=== PATIENT | male | born 1960 | race African-American/Black ===

== ENCOUNTER 2017-12-08 19:17 | Emergency (ER) | payer OTHER ==
[~2017-12-08] VITALS: Ht 170.2 cm; Wt 146.5 kg
--- NOTE | ~2017-12-08 | EKG ---
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 : 1960 Requested By: Herbert Matthews Order Number: [id number] MD: Mario Lenz Measurements Intervals [place] Rate: 99 P: 69 [place]: 145 QRS: 47 QRSD: 94 T: QT: 348 QTc: 447 Interpretive Statements Sinus rhythm LAE, consider biatrial enlargement RSR' in V1 or V2, right VCD or RVH Nonspecific ST and T wave abnormality Compared to ECG 10/29/2009 18:21:26 Nonspecific change in the ST and T wave abnormality Electronically Signed On 12-09-2017 9:30:51 CDT by Mario Lenz [email or web address] <ELECTRONICALLY SIGNED> By: Mario Lenz MD, FAC 12/09/17 0930 23 23 Mario Lenz MD, [facility] /EPI
[~2017-12-08 19:17] MED LIST: AMOXICILLIN/POTASSIU PO; AZITHROMYCIN 2250 MG PO; CHERACOL COUGH120 ML PO; KEFLEX500 MG PO; MUCINEX600 MG PO; NOHOMEMEDICATIONS; PERCOCET 5-3251 EACH PO; PROAIR HFA8.5 GM IH; TRAMADOL 50 MG50 MG PO; ZPAK PO
[2017-12-08 20:39] LABS: ABSOLUTE NEUTROPHILS 6.9 thou/uL (1.4-8.2); BASOPHILS 0.3 % (0.0-2.0); EOSINOPHILS 2.2 % (0.0-3.0); HEMATOCRIT 41.6 % (42.0-52.0); HEMOGLOBIN 14.2 gm/dL (14.0-18.0); LYMPHOCYTES 28.6 % (24.0-44.0); MCH 31.4 pg (26.0-34.0); MCHC 34.1 g/dL (28.0-37.0); MCV 91.9 fL (80.0-100.0); MONOCYTES 5.3 % (1.0-8.0); PLATELET COUNT 203 thou/uL (150-400); POLYS 63.6 % (36.0-66.0); RBC 4.53 mil/uL (4.50-6.00); RDW 13.5 % (10.5-14.5); WBC 10.8 thou/uL (4.0-11.0)
[2017-12-08 21:12] LABS: ANION GAP 8 mmol/L (7-16); BUN 18 mg/dL (7-18); CALCIUM 8.7 mg/dL (8.5-10.1); CHLORIDE 101 mmol/L (98-107); CO2 30 mmol/L (21-32); CREATININE 1.1 mg/dL (0.7-1.3); GLUCOSE 167 mg/dL (74-106); POTASSIUM 3.7 mmol/L (3.5-5.1); SODIUM 139 mmol/L (136-145)
[2017-12-08 21:20] LABS: ALBUMIN 3.3 g/dL (3.4-5.0); SGOT 24 U/L (15-37); SGPT 27 U/L (30-65); TOTAL BILIRUBIN 0.2 mg/dL (<0.1-1.0); TOTAL PROTEIN 7.2 g/dL (6.4-8.2); TROPONIN-I <0.06 ng/mL (<0.06)
[2017-12-08] MEDS ORDERED: LABETALOL HCL100 MG PO (21:45)
[2017-12-08] MEDS ORDERED: BUTALB-APAP-CA1 EACH PO (21:45)
[2017-12-08 22:08] VITALS: BP 150/66
== END 2017-12-08 22:09 | disposition home or self-care (01) ==
LOC: ER 19:17
PROVIDERS: Emergency Medicine
DX: I10 Essential (primary) hypertension (principal); F20.9 Schizophrenia, unspecified; G47.30 Sleep apnea, unspecified; Z91.14 Patient's other noncompliance with medication regimen; E10.9 Type 1 diabetes mellitus without complications; E78.5 Hyperlipidemia, unspecified

== ENCOUNTER 2018-07-17 01:07 | Emergency (ER) | payer OTHER ==
[~2018-07-17] VITALS: Ht 177.8 cm; Wt 149.7 kg
[2018-07-17 01:23] VITALS: BP 181/99
== END 2018-07-17 02:06 | disposition home or self-care (01) ==
LOC: ER 01:07
DX: M25.522 Pain in left elbow (principal); I10 Essential (primary) hypertension; E10.9 Type 1 diabetes mellitus without complications; E78.5 Hyperlipidemia, unspecified; Z88.8 Allergy status to other drugs, medicaments and biological substances

== ENCOUNTER 2018-12-31 09:56 | Emergency (ER) | payer OTHER ==
[~2018-12-31] VITALS: Ht 177.8 cm; Wt 148.3 kg
[~2018-12-31 09:56] MED LIST changes: +BUTALB-APAP-CA1 EACH PO; +CARVEDILOL3.125 MG PO; +HALDOL 0.5 MG0.5 MG PO; +HYTRIN 1 MG CAP1 MG PO; +LABETALOL HCL100 MG PO; +LIPITOR10 MG PO; +LISINOPRIL10 MG PO; +NEURONTIN 300300 M1 PO; +TYLENOL EXTRA500 MG PO; +XARELTO10 MG PO
[2018-12-31] MEDS ORDERED: LASIX 20 MG TAB20 MG PO (10:43)
[2018-12-31] MEDS ORDERED: MELATONIN3 M1 PO (10:43)
[2018-12-31 10:54] LABS: ABSOLUTE NEUTROPHILS 4.9 thou/uL (1.4-8.2); BASOPHILS 0.9 % (0.0-2.0); EOSINOPHILS 3.7 % (0.0-3.0); HEMATOCRIT 41.7 % (42.0-52.0); HEMOGLOBIN 13.7 gm/dL (14.0-18.0); LYMPHOCYTES 21.6 % (24.0-44.0); MCH 30.8 pg (26.0-34.0); MCHC 32.8 g/dL (28.0-37.0); MCV 93.8 fL (80.0-100.0); MONOCYTES 7.5 % (1.0-8.0); PLATELET COUNT 186 thou/uL (150-400); POLYS 66.3 % (36.0-66.0); RBC 4.45 mil/uL (4.50-6.00); RDW 13.9 % (10.5-14.5); WBC 7.3 thou/uL (4.0-11.0)
[2018-12-31 11:12] LABS: ANION GAP 7 mmol/L (7-16); BUN 15 mg/dL (7-18); CALCIUM 8.9 mg/dL (8.5-10.1); CHLORIDE 101 mmol/L (98-107); CO2 32 mmol/L (21-32); CREATININE 0.8 mg/dL (0.7-1.3); GLUCOSE 126 mg/dL (74-106); POTASSIUM 4.3 mmol/L (3.5-5.1); SODIUM 140 mmol/L (136-145)
[2018-12-31 11:17] LABS: ALBUMIN 3.5 g/dL (3.4-5.0); SGOT 33 U/L (15-37); SGPT 27 U/L (30-65); TOTAL BILIRUBIN 0.5 mg/dL (<0.1-1.0); TOTAL PROTEIN 6.9 g/dL (6.4-8.2); TROPONIN-I <0.06 ng/mL (<0.06)
[2018-12-31] MEDS ORDERED: VENTOLIN HFA 1818 GM INH (13:12)
[2018-12-31] MEDS ORDERED: ZITHROMAX250 MG PO (13:12)
[2018-12-31] MEDS ORDERED: PROMETH-CODEIN 65 ML PO (13:12)
[2018-12-31 13:38] VITALS: BP 140/89
== END 2018-12-31 13:39 | disposition home or self-care (01) ==
LOC: ER 09:56
PROVIDERS: Emergency Medicine
DX: J18.9 Pneumonia, unspecified organism (principal); I10 Essential (primary) hypertension; E10.9 Type 1 diabetes mellitus without complications; E78.5 Hyperlipidemia, unspecified; Z86.73 Personal history of transient ischemic attack (TIA), and cerebral infarction without residual deficits; Z88.8 Allergy status to other drugs, medicaments and biological substances

== ENCOUNTER 2019-02-15 13:40 | Emergency (ER) | payer OTHER ==
[~2019-02-15] VITALS: Ht 172.7 cm; Wt 136.1 kg
[~2019-02-15 13:40] MED LIST changes: +LASIX 20 MG TAB20 MG PO; +MELATONIN3 M1 PO; +PROMETH-CODEIN 65 ML PO; +VENTOLIN HFA 1818 GM INH; +ZITHROMAX250 MG PO
[2019-02-15 16:02] LABS: ABSOLUTE NEUTROPHILS 5.5 thou/uL (1.4-8.2); BASOPHILS 0.4 % (0.0-2.0); EOSINOPHILS 2.5 % (0.0-3.0); HEMATOCRIT 43.5 % (42.0-52.0); HEMOGLOBIN 14.1 gm/dL (14.0-18.0); LYMPHOCYTES 27.5 % (24.0-44.0); MCH 30.8 pg (26.0-34.0); MCHC 32.5 g/dL (28.0-37.0); MCV 94.7 fL (80.0-100.0); MONOCYTES 7.2 % (1.0-8.0); PLATELET COUNT 205 thou/uL (150-400); POLYS 62.4 % (36.0-66.0); RDW 14.1 % (10.5-14.5); WBC 8.8 thou/uL (4.0-11.0)
[2019-02-15] MEDS ORDERED: DOXYCYCLINE 10100 MG PO (16:02)
[2019-02-15 16:10] LABS: CALCIUM 9.5 mg/dL (8.5-10.1); CREATININE 1.1 mg/dL (0.7-1.3); POTASSIUM 3.9 mmol/L (3.5-5.1)
[2019-02-15 16:16] LABS: ALBUMIN 3.7 g/dL (3.4-5.0); TOTAL BILIRUBIN 0.5 mg/dL (<0.1-1.0); TOTAL PROTEIN 7.7 g/dL (6.4-8.2)
[2019-02-15 17:25] VITALS: BP 174/85
== END 2019-02-15 17:26 | disposition home or self-care (01) ==
LOC: ER 13:40
PROVIDERS: Physician Assistant
DX: R06.02 Shortness of breath (principal); M79.89 Other specified soft tissue disorders; R05 Cough; I11.0 Hypertensive heart disease with heart failure; I50.9 Heart failure, unspecified; E10.9 Type 1 diabetes mellitus without complications; E78.5 Hyperlipidemia, unspecified; Z79.899 Other long term (current) drug therapy

== ENCOUNTER 2019-08-13 21:21 | Inpatient (IN) | payer OTHER ==
[~2019-08-13] VITALS: Ht 177.8 cm; Wt 128.8 kg
[~2019-08-13 21:21] MED LIST changes: +CARVEDILOL25 MG PO; -CARVEDILOL3.125 MG PO; +DOXYCYCLINE 10100 MG PO; -HYTRIN 1 MG CAP1 MG PO; +HYTRIN 2MG CAPSU2 M1 PO; -LASIX 20 MG TAB20 MG PO; +LASIX 40 MG TAB40 M2 PO; -LISINOPRIL10 MG PO; +LISINOPRIL20 MG PO; -NEURONTIN 300300 M1 PO; +NEURONTIN 300M300 M2 PO; -XARELTO10 MG PO; +XARELTO20 MG PO
[2019-08-13 21:32] VITALS: BP 210/112
[2019-08-13] MEDS ORDERED: ABILIFY 5 MG TAB5 MG PO (21:41)
[2019-08-13 22:00] LABS: ABSOLUTE NEUTROPHILS 6.7 thou/uL (1.4-8.2); BASOPHILS 0.4 % (0.0-2.0); HEMATOCRIT 43.1 % (42.0-52.0); HEMOGLOBIN 14.2 gm/dL (14.0-18.0); LYMPHOCYTES 21.3 % (24.0-44.0); MCH 31.5 pg (26.0-34.0); MCHC 32.9 g/dL (28.0-37.0); MCV 95.8 fL (80.0-100.0); MONOCYTES 6.9 % (1.0-8.0); PLATELET COUNT 200 thou/uL (150-400); POLYS 69.4 % (36.0-66.0); RDW 15.1 % (10.5-14.5); WBC 9.6 thou/uL (4.0-11.0)
[2019-08-13 22:01] LABS: ANION GAP 4 mmol/L (7-16); BUN 16 mg/dL (7-18); CALCIUM 8.2 mg/dL (8.5-10.1); CHLORIDE 100 mmol/L (98-107); CO2 34 mmol/L (21-32); CREATININE 1.1 mg/dL (0.7-1.3); GLUCOSE 146 mg/dL (74-106); POTASSIUM 3.6 mmol/L (3.5-5.1); SODIUM 138 mmol/L (136-145)
[2019-08-13 22:04] LABS: APTT 27.9 Seconds (24.5-32.8); INR 1.1; PROTIME 11.3 Seconds (9.3-11.4)
[2019-08-13 22:06] LABS: BE(vivo) 1.6 mmol/L (-2 to +3); HCO3 28.6 mmol/L (22.0-26.0); PCO2 54.3 mmHg (35.0-45.0); PO2 53.7 mmHg (80.0-100.0); pH 7.339 (7.360-7.450); sO2 85.4 % (92.0-98.0)
[2019-08-13 22:12] LABS: ALBUMIN 3.5 g/dL (3.4-5.0); MAGNESIUM 1.8 mg/dL (1.8-2.4); SGOT 35 U/L (15-37); SGPT 30 U/L (30-65); TOTAL BILIRUBIN 0.7 mg/dL (0.2-1.0); TROPONIN-I <0.06 ng/mL (<0.06)
[2019-08-13 22:50] LABS: URINE BILIRUBIN NEGATIVE (Negative); URINE BLOOD NEGATIVE (Negative); URINE CLARITY CLEAR; URINE COLOR YELLOW; URINE GLUCOSE-RANDOM* NEGATIVE (Negative); URINE KETONES NEGATIVE (Negative); URINE LEUKOCYTES-REFLEX NEGATIVE (Negative); URINE NITRITE-REFLEX NEGATIVE (Negative); URINE PROTEIN (DIPSTICK) TRACE (Negative); URINE SPECIFIC GRAVITY 1.015 (1.005-1.035)
[2019-08-13 23:33] VITALS: BP 181/87
[2019-08-14] VITALS (8 sets, daily range): BP systolic 120–160; BP diastolic 75–103
--- NOTE | 2019-08-14 06:01 | NUR ---
ASSESSMENT: PT ARRIVED ON THE UNIT VIA CART FROM ED ACCOMPANIED BY STAFF MEMBER. PT IS ALERT AND ORIENT TIMES FOUR. PT REQUEST TO SLEEP IN THE CHAIR R/T SOB. BP ELEVATED, METOPROLOL GIVEN, HYDRALAZINE PRN. PT WAS VERY DROWSY UPON ADMISSION. DID HAVE TO BE AWAKEN SEVERAL TIMES TO ANSWER QUESTIONS AND COOPERATE WITH THE ADMISSION. PT GUNJAN THOMAS, THERE HAS BEEN SEVERAL TICKETS MADE REGUARDING THAT SOME ADMISSIONS WILL NOT FILE ONCE THEY HAVE BEEN ENTERED. THIS RN ENTERED THIS PT'S ADMISSION 5 TIMES TO NO AVAIL WHEN IT WAS TIME TO FILE. THIS PT IS NOT BEING ABUSED AT HOME OR ELSE WHERE, HE DOES FEEL SAFE RETURNING HOME. HE IS NOT A RISK FOR SI/HI NOR ABUSE. HE IS A LOW FALL RISK R/T BANDAGES WRAPPED AROUND LE. PT IS ON A FR OF 1500. HE IS R/O COVID. SR-ST PER MONITOR. IT TECH WILL TRY TO CORRECT THE ISSUE OF NOT BEING ABLE TO ENTER/FILE AN ADMISSION ASSESSMENT. WILL CONTINUE TO MONITOR.
[2019-08-14 06:16] LABS: ANION GAP 3 mmol/L (7-16); BUN 18 mg/dL (7-18); CALCIUM 8.3 mg/dL (8.5-10.1); CHLORIDE 100 mmol/L (98-107); CO2 36 mmol/L (21-32); CREATININE 1.1 mg/dL (0.7-1.3); GLUCOSE 169 mg/dL (74-106); POTASSIUM 3.6 mmol/L (3.5-5.1); SODIUM 139 mmol/L (136-145)
[2019-08-14 06:39] LABS: CHOLESTEROL 116 mg/dL (<200); HDL CHOLESTEROL 20 mg/dL (>40); LDL CHOLESTEROL 72 mg/dL (<100); SERUM ASSESSMENT Clear; TC:HDL 5.8 Ratio (Not establshd); TRIGLYCERIDE 124 mg/dL (<150); VLDL 25 mg/dL (<40)
--- NOTE | 2019-08-14 07:19 | NUR ---
Nutrition: BMI > 40 at 49.7 kg/m2. Admit for CHF, COPD, respiratory failure, HTN. Currently in enhanced isolation, undergoing COVID rule out. Test results still pending. He is on a 1500 carb controlled, 2 g Na diet, as well as 1500 mL fluid restriction as indicated in RN notes. Will defer diet education at this time and attempt next week once results are known.
--- NOTE | 2019-08-14 18:42 | NUR ---
PT IS A&OX3, PT IS CONTINUING O2 3L/MIN/NC, PT HAS RUNNING A-FIB, HR UP TO 129-140, PT STARTS DILTIAZEM DRIP , PT 'S DILTIAZEM IS RUUUNING AT 5MG/HR TO KEEP HR <100 ( 70-90), PT HTN HAS IMPROVED, PT'S BLE WOUND CARE HAS DONE , PT DENIES PAIN AT THIS TIME, PT GETS UP TO CHAIR ,
--- NOTE | 2019-08-14 18:49 | NUR ---
PT'S FIRST TEST IS NEGATIVE FROM 08/13/19 2220 COVID TEST, BUT PT STILL HAS SOB WITH ACTIVITIES, PT HAS SECOND COVID TEST AT 1450PM TODAY, PT REMAININ ENHANCED PRECAUTIONS
[2019-08-15 01:06] LABS: GLYCOHEMOGLOBIN (HGB A1C) 6.5 % (4.8-5.6)
[2019-08-15 03:20] VITALS: BP 118/78
--- NOTE | 2019-08-15 05:02 | NUR ---
Pt. requested assistance to use the bathroom after shift change. While in the bathroom he is tearful and asking why can't his stay with him. Explained to pt. that while his test is pending and while he is in this unit ,visitors are not allowed per policy due to COVID precautions. He got even frustrated when he attempted to wipe himself and stated he can't despite disconnecting his sat monitor and IV. He was assisted to clean himself up. Assisted back in recliner chair per his request and encouraged to call when he's ready to go to bed. Once in chair , he verbalized several concerns. He didn't feel like the dressing in his legs is not the correct dressing. Explained to him that leg dressing that was done during the day is the wound care doctor's recommendation. He also asked why can't we fill water pitcher with water. Explained to him that he is on fluid restriction and we can better monitor his fluid intake by bringing cups. He was not happy about that. Brought him a cup of water to take with his med and later on he requested sandwich because he is hungry which was given to him. He also asked why we have not started his regular meds and explained to him that day RN tried to get hold of his to get an accurate list of his meds but no answer. I asked the pt. if there's anything in particular that he needs and stated he does not remember but his should remember all of it. Since it's late at night I offered to call if she's still awake but pt. said to just do it sometime today. After I left the room he turned on his call light asking for the tree trimming supervisor or school transportation director. Informed both but can't come right away. Another school transportation director in the unit went to speak to the pt. He c/o of itching and burning on his legs and requesting for the medicated wrap for his legs but can't remember what medicated wrap it is. Pt. informed that we have to find out what kind of wrap it is and we have to speak to wound care doctor about that. Offered tyl and benadryl to help with discomfort and he agreed. MANAGER STARS notified and order received. Pt. verbalized some relief. Also offered to rewrapped legs but declined and also offered to take off dressing if he needs a break to help with discomfort but also declined stating he didn't want to leave it open. Pt. slept for a short period of time on the bed and requested to get up in the recliner chair again. After he was assisted up in the chair and got him comfortable he c/o of his IV hurting. Right AC IV is functional and working but he stated it's poking him. New IV placed on right FA. Cardizem gtt. infusing at 5ml/hr. He has been in and out of A fib with controlled rate and SR. Maintaining O2 sat in the low to mid 90's on 3L/NC. He verbalized being short of breath with exertion. Voided per urinal.
[2019-08-15 06:42] LABS: CALCIUM 8.6 mg/dL (8.5-10.1); CREATININE 1.2 mg/dL (0.7-1.3); POTASSIUM 3.7 mmol/L (3.5-5.1)
[2019-08-15 08:19] VITALS: BP 131/83
--- NOTE | 2019-08-15 10:17 | NUR ---
RN HAD ASKED PT AND PT'S TO GET PT'S PHARMACY PHONE FOR PT'S HOME MEDICATIONS, BUT PT AND PT'S DID NOT KNOW PT'S MEDICATION LIST AND LUCY JUAN PHONE NUMBER, RN HAD ASKED PT'S TO FIND OTHER FAMILY TO HELP ABOUT PT'S MEDICATION LIST .RN HAD REPORTED TO NEXT SHIFT TO F/U.-------LATE ENTRY FOR 08/14/19 7AM-7PM SHIFT.
--- NOTE | 2019-08-15 10:40 | NUR ---
PER DR. CHRISTIE PT IS OK TO BE TAKEN OFF OF COVID PRECAUTIONS AND BE MOVED TO ANOTHER FLOOR.
--- NOTE | 2019-08-15 11:22 | NUR ---
PT CARE ASSUMED AT 0700. A&Ox4, FORGETFUL. PT IS VERY SLEEPY AND WILL FALL ASLEEP IN TH EMIDDLE OF TALKING TO HIM. PT DOES NOT UNDERSTAND HIS DIAGNOSIS AND PLAN OF CARE FULLY AND WILL CONTINUE TO ASK THE SAME QUESTIONS OVER AND OVER AGAIN. CONTINUES PT EDUCATION GIVEN. RN TRIED TO CALL TO RECONCILE MEDICATION WITH NO ANSWER, MESSAGE LEFT ON VOICEMAIL. PT IS OK TO GO TO ANOTHER FLOOR PER DR. CHRISTIE WITH TWO NEGATIVE COVID RESULTS. IV IS PATENT WITH CARDIZEM DRIP. VITALS ARE STABLE AND SRIP CONTINUES TO GO AT 5ML/HR. NICOTINE PATCH ON L.ARM. BILATERAL EDEMA WITH +3. 1500ML FLUID RESTRICTION. ACHS WITH SLIDING SCALE. BILATER L. CELLULITIS. PT DOES NOT BELIEVE THE TREATMENT ON HIS LEGS ARE CORRECT WITHOUT HIS BEING ABLE TO RECONCILE HIS MEDICATIONS WE CANNOT CONFIRM WHAT THE MEDICATED CREAM IS HE IS MENTIONING. PT USES URINAL. 3L O2 BASELINE. CHF PROTOCOL. DAILY WEIGHT. AFIB ON THE MONITOR. FALL PROTOCOL IN PLACE. WILL CONTINUE TO MONITOR.
[2019-08-15 12:15] VITALS: BP 131/75
[2019-08-15] MEDS ORDERED: ASA81BEC PO (12:15)
--- NOTE | 2019-08-15 12:41 | HC ---
[facility] [place] [place] [address] CONSULTATION Name: GURWINDER FRANCISCO Room #: 356-P ADM IN M.R.#: [id number] Admission: 08/13/19 Attend Phys: Ping Rothman Discharge: Date of : 62 Report #: [id number] THIS REPORT FOR: cc: AZUCENA - No family physician/PCP AZCUENA - No family physician/PCP Seamus Shelton MD ~ CC: AZUCENA physician/PCP Ping Rothman DATE OF SERVICE: 08/14/2019 WOUND CARE CONSULTATION NOTE REASON FOR CONSULTATION: Swelling of legs. HISTORY OF PRESENT ILLNESS: The patient is a 59-year-old gentleman, admitted to [facility] through the Emergency Department on 08/13/2019 for shortness of breath and swelling in his legs. The patient has a history of atrial fibrillation and atrial fibrillation ablation. He has a history of hypertension, congestive heart failure, stroke, diabetes mellitus type 1. He felt his legs have been more swollen and sometimes weep. His legs were recently wrapped at Wound Care at [facility]. PAST MEDICAL HISTORY: Diabetes mellitus type 1, congestive heart failure, stroke, atrial fibrillation with ablation. PAST SURGICAL HISTORY: Ablation for atrial fibrillation and flutter. MEDICATIONS: Include Ventolin, Tylenol, Hytrin, Zestril, Lipitor, Coreg, Xarelto, Neurontin, Lasix, Abilify. PHYSICAL EXAMINATION: GENERAL: Shows a sleepy gentleman, sitting in a chair. The patient is obese. HEENT: Mucous membranes are moist. LUNGS: Respirations are unlabored. ABDOMEN: Obese. EXTREMITIES: Extremities exam shows his legs are wrapped with Cristopher wraps. Cristopher wraps and dressings are removed. Lower extremities show some lymphedema and venous stasis with slight edema. There are no open wounds. There is no weeping. IMPRESSION: 1. Obesity. 2. Atrial fibrillation. 3. Shortness of breath. 4. Status post cerebrovascular accident. [facility] [address] [place] [address] CONSULTATION Name: GURWINDER FRANCISCO JOHAN Room #: 356-P [facility] IN ..#: [id number] Admission: 08/13/19 Attend Phys: Ping Rothman Discharge: Date of : 62 Report #: [id number] 5. Bilateral mild lymphedema. 6. Bilateral venous stasis. 7. Diabetes mellitus type 1 with skin complications with inflammation of both legs. No apparent cellulitis of the legs. IMPRESSION: Congestive heart failure with lower extremity lymphedema and venous stasis. PLAN: Skin moisturizer to both legs. Kerlix wrap and double Cristopher wrap, which can stay on for 2-3 days. Wound Care team will follow. <ELECTRONICALLY SIGNED> By: Seamus Shelton MD 08/15/19 1241 1440 1516 Seamus Shelton MD /nt
[2019-08-15 17:18] VITALS: BP 175/105
[2019-08-15 19:45] VITALS: BP 142/58
[2019-08-15 19:51] VITALS: BP 142/58
[2019-08-16 04:00] VITALS: BP 149/67
[2019-08-16 05:40] LABS: CALCIUM 8.6 mg/dL (8.5-10.1); POTASSIUM 3.7 mmol/L (3.5-5.1)
--- NOTE | 2019-08-16 06:13 | NUR ---
PT IS ALERT AND ORIENTED X4. LUNGS ARE CLEAR TO DIMINISHED. DOESNT LIKE TO WEAR HIS SLEEP MACHINE AND MASK. HE REPORTS HASNT WORN IT IN MONTHS. SLEEPS IN UPRIGHT POSITION. O2 ON AT 4 LITERS PER MASK OXYGEN SATURATION IS 94 PERCENT. LEGS BILAERAL IN WRAPS FOR CELLULITS OF LEGS. SNORING AND SLEEP INTERUPTED DURING NIGHT TIME. APPEARS IF HE HAS TROUBLE SLEEPING. EXPECIALY NOT WEARING HIS MASK AT BEDTIME NEEDED FOR CARE. WILL CONTINUE TO ASSESS AND MONITOR PER NURSING
[2019-08-16 07:32] VITALS: BP 120/78
[2019-08-16 11:46] LABS: HEMATOCRIT 43.6 % (42.0-52.0); HEMOGLOBIN 13.9 gm/dL (14.0-18.0); MCH 31.1 pg (26.0-34.0); MCHC 31.9 g/dL (28.0-37.0); MCV 97.7 fL (80.0-100.0); RBC 4.47 mil/uL (4.50-6.00); RDW 15.2 % (10.5-14.5); WBC 8.9 thou/uL (4.0-11.0)
[2019-08-16 12:00] VITALS: BP 99/66
[2019-08-16 14:03] LABS: BE(vivo) 7.9 mmol/L (-2 to +3); HCO3 34.9 mmol/L (22.0-26.0); PCO2 58.5 mmHg (35.0-45.0); PO2 58.2 mmHg (80.0-100.0); pH 7.393 (7.360-7.450); sO2 89.4 % (92.0-98.0)
--- NOTE | 2019-08-16 15:45 | NUR ---
ASSUMED CARE AT SHIFT CHANGE, PATEINT IS ALERT AND ORIENTED X4. SETING IN CHAIR AND SLEEPING ON AND OFF. VSS, AND AFLUTTER ON THE MONITOR THIS MORNING, AND CONVERTED TO SR. C/O THAT DRESSING ON HIS BLE NOT BEING CHANGED, THIS RN OFFERED TO CHANGE THE DRESSING AND REWRAP BLE, AND PATIENT REFUSED. AND WILL CONTINUE WITH POC.
[2019-08-16 16:00] VITALS: BP 119/63
[2019-08-16 20:25] VITALS: BP 138/68
[2019-08-17 05:09] VITALS: BP 105/61
--- NOTE | 2019-08-17 06:48 | NUR ---
PATIENT ALERT AND ORIENTED X4. UP TO CHAIR X2 DURING THE NIGHT. 02NC 4-5L WITH SOME SOA WITH EXERTION. BILATERAL LOWER LEGS WRAPPED AND ARE D/I. LARGE BM AT SHIFT CHANGE YESTERDAY. 1500 FLUID RESTRICTION DAILY. PATIENT UP TO BATHROOM WITH ONE ASSIST. BS MONITORED PER ORDER. WILL MONITOR.
[2019-08-17 07:00] VITALS: BP 110/68
--- NOTE | 2019-08-17 07:29 | EKG ---
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 : 1960 Requested By: Herbert Matthews Order Number: [id number] MD: Mario Lenz Measurements Intervals [place] Rate: 111 P: 60 RI: 151 QRS: 63 QRSD: 93 T: 72 QT: 318 QTc: 432 Interpretive Statements Sinus tachycardia Paired atrial premature complexes Nonspecific T abnormalities Compared to ECG 12/08/2017 19:24:14 Atrial premature complexes are now present Electronically Signed On 08-17-2019 7:28:59 CDT by Mario Lenz [email or web address] <ELECTRONICALLY SIGNED> By: Mario Lenz MD, [facility] 08/17/19 0728 Mario Lenz MD, [facility] /EPI
--- NOTE | 2019-08-17 07:41 | EKG ---
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 : 1960 Requested By: Yvan Bolden Order Number: [id number] MD: Mario Lenz Measurements Intervals [place] Rate: 78 P: [place]: QRS: 57 QRSD: 93 T: 60 QT: 395 QTc: 450 Interpretive Statements Atrial fibrillation RSR' in V1 or V2, right VCD Compared to ECG 08/13/2019 21:35:57 Atrial fibrillation has replaced sinus rhythm T-wave abnormality no longer present Electronically Signed On 08-17-2019 7:41:02 CDT by Mario Lenz [email or web address] <ELECTRONICALLY SIGNED> By: Mario Lenz MD, [facility] 08/17/19 0741 Mario Lenz MD, FAC /EPI
--- NOTE | 2019-08-17 08:01 | HC ---
[facility] [place] [address] CONSULTATION Name: GURWINDER FRANCISCO Room #: 211-P ADM IN M.R.#: [id number] Admission: 08/13/19 Attend Phys: Ping Rothman Discharge: Date of : 62 Report #: [id number] THIS REPORT FOR: cc: AZUCENA - Yarelis family physician/PCP AZUCENA - Yarelis family physician/PCP Yvan Bolden MD [facility] ~ CC: [facility] physician/PCP Ping Rothman DATE OF SERVICE: 08/14/2019 CARDIOLOGY CONSULT HISTORY OF PRESENT ILLNESS: The patient is a 59-year-old male who was admitted through the Emergency Room with some progressive dyspnea and shortness of breath. History mostly obtained from records he is revealing, being sitting up at bed at night with progressive lower extremity edema. He has chronic O2 at baseline. Does have a history of an AFib ablation 2 years ago, morbid obesity and O2 dependency. Apparently, he has been compliant with his medications and he is on relatively low doses of all these medications, a long time smoker and still continues to be a pack and a half a day. Some chest pain with some typical-atypical features. I am asked to evaluate for some progressive heart failure and volume overload. The home medications have been CPAP, oxygen, albuterol, recently Zithromax, promethazine, terazosin 1 mg, lisinopril 10, carvedilol 3.125 b.i.d., Lipitor 10, Xarelto 10, gabapentin, Lasix 20, melatonin, and Abilify 5 mg. Previously, he had apparently been on some Haldol. PAST MEDICAL HISTORY: Positive for hypertension, AFib ablation, diabetes, history of recurrent CHF, I do not know his LV function, hallucinations, hyperlipidemia and a prior stroke. SOCIAL HISTORY: Not really able to obtain, significant for alcohol and tobacco. Not sure of the family situation. FAMILY HISTORY: Not obtainable. LABORATORY WORK: Creatinine is 1.1, potassium 3.6. Troponin less than 0.06. BNP 736. H and H is 14 and 43. White count 9.6. Chest x-ray shows pulmonary vascular congestion and bilateral perihilar infiltrates. Blood pressures have been labile, hypertensive predominantly, 170s to 180s. Pulse is also labile in a 100, looks like he is at times attempting to have recurrent AFib. [facility] [address] [place] [address] CONSULTATION Name: GURWINDER FRANCISCO JOHAN Room #: 211-P ADM IN M.R.#: [id number] Admission: 08/13/19 Attend Phys: Ping Rothman Discharge: Date of : 62 Report #: [id number] I repeated his EKG in the morning anyway. PHYSICAL EXAMINATION: VITAL SIGNS: Blood pressure 170/86, pulse is 100s. HEENT: Eyes reveal xanthelasmas. Pharynx is clear. NECK: Shows preserved upstrokes. There is evidence of JVD. LUNGS: ____ crackles, prolonged expiratory phase. CARDIAC EXAM: Tachycardic, S1 and S2 distant. ABDOMEN: Soft, obese and nontender. EXTREMITIES: Reveals significant edema, 1-2+ to the level of the knee. Currently, lower extremities were wrapped. NEUROLOGIC: Intact. ASSESSMENT: 1. Acute on chronic systolic/diastolic heart failure, awaiting echo. 2. Hypertensive urgency with significant lability. 3. Acute on chronic hypoxemia and hypercapnia, on chronic O2. 4. Diabetes. 5. Hypertension. 6. Hypercholesterolemia. 7. History of cerebrovascular accident. 8. Rule out COVID. RECOMMENDATIONS AND PLAN: I am going to increase the carvedilol 12.5 b.i.d. We will switch losartan to olmesartan 40. IV Lasix and I will add diltiazem drip for rate control here. We will get EKG and echo once COVID is ruled out, this is pending. Further cardiology recommendations to follow. We will try to obtain old records if there is any to obtain. It sounds like this is not a new occurrence with his heart failure. We will follow with you. Thank you for asking me to assist in the care of this patient. <ELECTRONICALLY SIGNED> By: Yvan Bolden MD, FACC 08/17/19 0801 1033 1128 Yvan Bolden MD, FACC /nt
[2019-08-17 08:53] LABS: BUN 25 mg/dL (7-18); CHLORIDE 99 mmol/L (98-107); SODIUM 137 mmol/L (136-145)
[2019-08-17 08:54] LABS: ANION GAP < 0 mmol/L (7-16); CALCIUM 8.5 mg/dL (8.5-10.1); CO2 40 mmol/L (21-32); CREATININE 1.3 mg/dL (0.7-1.3); GLUCOSE 130 mg/dL (74-106); POTASSIUM 4.5 mmol/L (3.5-5.1)
--- NOTE | 2019-08-17 11:05 | 2DMMODE ---
[facility] [address] [address] 2 D/M-MODE ECHOCARDIOGRAM Name: GURWINDER FRANCISCO Room #: 211-P ADM IN M.R.#: [id number] Admission: 08/13/19 Attend Phys: Yo Molina MD Discharge: Date of : 62 Report #: [id number] THIS REPORT FOR: cc: AZUCENA - No family physician/PCP FAM - No family physician/PCP Yvan Bolden MD [facility] ~ APPROVED REPORT Study performed: 08/17/2019 09:38:34 EXAM: Comprehensive 2D, Doppler, and color-flow Echocardiogram Patient Location: Bedside Room #: 211 Status: routine BSA: 2.29 HR: 80 bpm BP: 110/68 mmHg Rhythm: NSR Other Information Study Quality: Fair Technically limited study due to lung disease, limited apical window. Risk Factors: Cardiac Risk Factors: HTN, Hyperlipidemia Indications Congestive Heart Failure COPD PAF 2D Dimensions IVSd: 15.03 (7-11mm) LVOT Diam: 21.00 (18-24mm) LVDd: 48.82 mm PWd: 14.10 (7-11mm) Ascending Ao: 28.64 (22-36mm) LVDs: 35.89 (25-40mm) Aortic Root: 32.64 mm Volumes Left Atrial Volume (Systole) Single Plane 4CH: 44.49 mL Aortic Valve [facility] [address] [place] [address] 2 D/M-MODE ECHOCARDIOGRAM Name: GURWINDER FRANCISCO JOHAN Room #: 211-P ADM IN M.R.#: [id number] Admission: 08/13/19 Attend Phys: Yo Molina MD Discharge: Date of : 62 Report #: [id number] Peak Cosme.: 1.52 m/s AO Peak Gr.: 9.20 mmHg LVOT Max P.03 mmHg LVOT Max V: 0.87 m/s YUE Vmax: 2.06 cm2 Mitral Valve E/A Ratio: 1.4 MV Decel. Time: 184.77 ms MV E Max Cosme.: 0.78 m/s MV A Cosme.: 0.56 m/s MV PHT: 53.58 ms IVRT: 78.43 ms Pulmonary Valve PV Peak Cosme.: 0.87 m/s PV Peak Gr.: 3.02 mmHg Tricuspid Valve TR Peak Cosme.: 2.58 m/s RAP Estimate: 10.00 mmHg TR Peak Gr.: 26.60 mmHg PA Pressure: 37.00 mmHg Left Ventricle The left ventricle is normal size. There is normal LV segmental wall motion. Moderate concentric left ventricular hypertrophy. The left ventricular systolic function is normal. The left ventricular ejection fraction is within the normal range. LVEF is 55-60%. The left ventricular diastolic function is normal. Right Ventricle The right ventricle is normal size. The right ventricular systolic function is normal. Atria Left atrium is mildly dilated. Right atrium is dilated. Aortic Valve The aortic valve is normal in structure. No aortic regurgitation is present. There is no aortic valvular stenosis. Mitral Valve The mitral valve is normal in structure. There is no mitral valve regurgitation noted. No evidence of mitral valve stenosis. Tricuspid Valve The tricuspid valve is normal in structure. Moderate tricuspid regurgitation. Pulmonary artery pressure is 37 mmHg. [facility] [address] [place] [address] 2 D/M-MODE ECHOCARDIOGRAM Name: GURWINDER FRANCISCO JHOAN Room #: [address] [place] [address] IN M.R.#: [id number] Admission: 08/13/19 Attend Phys: Yo Molina MD Discharge: Date of : 62 Report #: [id number] Pulmonic Valve The pulmonary valve is normal in structure. There is no pulmonic valvular regurgitation. Great Vessels The aortic root is normal in size. The ascending aorta is normal in size. IVC is dilated and collapses >50% with inspiration. Pericardium There is no pericardial effusion. <Conclusion> The left ventricle is normal size. Moderate concentric left ventricular hypertrophy. LVEF is 55-60%. The left ventricular diastolic function is normal. The right ventricle is normal size. Left atrium is mildly dilated. Right atrium is dilated. The aortic valve is normal in structure. There is no mitral valve regurgitation noted. Moderate tricuspid regurgitation. Pulmonary artery pressure is 37 mmHg. The aortic root is normal in size. There is no pericardial effusion. <ELECTRONICALLY SIGNED> By: Yvan Bolden MD, FACC 08/17/19 1104 1104 1104 Yvan Bolden MD, FACC /INF
[2019-08-17 11:15] LABS: BE(vivo) 6.9 mmol/L (-2 to +3); HCO3 37.1 mmol/L (22.0-26.0); sO2 93.7 % (92.0-98.0)
[2019-08-17 11:16] LABS: pH 7.263 (7.360-7.450)
[2019-08-17 11:30] VITALS: BP 160/60
[2019-08-17 15:30] VITALS: BP 99/49
--- NOTE | 2019-08-17 19:46 | NUR ---
ASSUMED CARE PT SHIFT CHANGE. ASSESSMENTS CHARTED.MEDS GIVEN PER APR. PT ORIENTED. LETHARGIC UPON ASSESSMENT, DIFFICULT TO AROUSE. PHYSICIAN NOTIFIED. ORDERS RECEIVE. ABG LABS REPORTED TO PHYSICIAN. BIPAP PUT ON PT, DOES NOT TOLERATE WELL. PT TORE OFF BIPAP AND BEGAN CURSING AT RN SAYING HE WILL NOT WEAR THIS. PULMONARY NOTIFIED. REPEAT ABG ORDERED. NASAL CANNULA PUT ON AND PT LEFT TO CALM DOWN. PT AGREED TO WEAR BIPAP BREATHING CONTINUED TO BECOME INCREASINGLY LABORED. AT BEDSIDE THIS SHIFT. PT SEEN BY WOUND- SEE NEW ORDERS. WORKED WITH PHYS THERAPY AND OT, TOLERATED WELL. SR ON TELE. REPORT PASSED ONTO NOC RN.
[2019-08-17 19:59] VITALS: BP 107/67
[2019-08-17 20:36] LABS: BE(vivo) 6.3 mmol/L (-2 to +3); PO2 66.9 mmHg (80.0-100.0)
[2019-08-17 20:38] LABS: PCO2 78.2 mmHg (35.0-45.0)
[2019-08-17 20:44] LABS: pH 7.281 (7.360-7.450)
--- NOTE | 2019-08-17 22:00 | NUR ---
PT RESTING IN BED.UPSET WITH ONE OF THE STAFF AND HAD CONCERN THAT STAFF WAS TALKING IN A RUDE MANNER.RESIDENTIAL ADVISOR AND CHARGE NURSE ADDRESSED THE PATIENTS CONCERNS. PT VOICED UNDERSTANDING AND REQUESTED NOT TO HAVE THE PARTICULAR STAFF NOT ASSIGNED FOR HIS CARE.CRITICAL ABGS CALLED TO DR PUENTE ORDERS RECEIVED.PT NON COMPLAINT WITH KEEPING BIPAP ON STATING HE IS GETTING CLAUSTROPHOBIC,ANTIANXIETY MEDS GIVEN PER ORDERS.PT DENIES ANY FURTHER CONCERNS AT THIS TIME.WILL CONT TO MONITOR PER POC.
[2019-08-17 23:12] LABS: BE(vivo) 2.9 mmol/L (-2 to +3); HCO3 33.7 mmol/L (22.0-26.0); PO2 67.7 mmHg (80.0-100.0); sO2 88.5 % (92.0-98.0)
[2019-08-17 23:13] LABS: PCO2 85.1 mmHg (35.0-45.0); pH 7.215 (7.360-7.450)
[2019-08-18] VITALS (40 sets, daily range): BP systolic 74–141; BP diastolic 44–87
[2019-08-18 00:23] LABS: BE(vivo) 3.5 mmol/L (-2 to +3); HCO3 35.2 mmol/L (22.0-26.0); PCO2 95.3 mmHg (35.0-45.0); PO2 81.8 mmHg (80.0-100.0); sO2 92.4 % (92.0-98.0)
[2019-08-18 00:24] LABS: pH 7.185 (7.360-7.450)
[2019-08-18 01:39] LABS: BE(vivo) 2.3 mmol/L (-2 to +3); HCO3 34.6 mmol/L (22.0-26.0); PCO2 99.2 mmHg (35.0-45.0); PO2 60.8 mmHg (80.0-100.0); sO2 82.3 % (92.0-98.0)
--- NOTE | 2019-08-18 02:47 | NUR ---
DR PUENTE NOTIFIED OF CRITICAL ABGS,NO N/OS GIVEN AT THIS TIME.
--- NOTE | 2019-08-18 04:43 | NUR ---
ASSESSMENT DOCUMENTED.PT SITTING IN THE RECYCLINER AT THIS TIME.A/OX4.VSS.ON BIPAP,ABGS BEEN CRITICAL,DR PUENTE MADE AWARE OF THE CRITICAL LABS.DENIES PAIN.MOE LES LOTIONED AND LEFT REJI.POC IS TO CONTINUE ON BIPAP WHILE MONITORING ABGS.
[2019-08-18 05:18] LABS: CALCIUM 8.5 mg/dL (8.5-10.1); CREATININE 1.8 mg/dL (0.7-1.3); POTASSIUM 5.3 mmol/L (3.5-5.1)
[2019-08-18 08:07] LABS: BE(vivo) 4.7 mmol/L (-2 to +3); HCO3 37.4 mmol/L (22.0-26.0); PCO2 105.6 mmHg (35.0-45.0); PO2 69.8 mmHg (80.0-100.0); pH 7.167 (7.360-7.450); sO2 87.6 % (92.0-98.0)
--- NOTE | 2019-08-18 09:31 | NUR ---
Patient admits with chf, resp distress, edema. Chart reviewed sp with Rn. 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 Has and dtr. Dtr updated today regarding patient transfer to ICU. Patient has home oxygen not sure of company. Patient with [facility] insurance and [place] med[place] secondary. CM following for dc planning.
--- NOTE | 2019-08-18 09:49 | NUR ---
Pt PLACED ON HOLD FROM P.T. DUE TO DECLINE IN PULMONARY STATUS AND TX TO ICU. REQUEST NEW ORDERS ONCE PT ABLE TO PARTICIPATE IN THERAPEUTIC ACTIVITIES.
--- NOTE | 2019-08-18 10:53 | NUR ---
PICC PROCEDURE: MEDICAL NECESSITY PER DR. PUENTE. FAMILY NOT AVAILABLE AND PRESENTLY UNREACHABLE. TRIPLE LUMEN PICC PLACED TO RUE BASILIC VEIN. ONE STICK AND NO COMPLICATIONS. PATIENT TOLERATED WELL. PICC LENGTH =42CM. EXTERNAL =2 CM. TIP OF PICC VERIFIED DISTAL SVC. [facility] DUMPER NOTIFIED OKAY TO USE.
--- NOTE | 2019-08-18 10:59 | NUR ---
pt new to icu today, soa and unable to visit with pt rt short of air. will cont following as needed for dc needs.
[2019-08-18 11:02] LABS: BE(vivo) 5.2 mmol/L (-2 to +3); HCO3 32.7 mmol/L (22.0-26.0); PCO2 60.1 mmHg (35.0-45.0); PO2 45.8 mmHg (80.0-100.0); pH 7.354 (7.360-7.450); sO2 78.7 % (92.0-98.0)
[2019-08-18 12:30] LABS: BE(vivo) 5.9 mmol/L (-2 to +3); HCO3 31.6 mmol/L (22.0-26.0); PCO2 49.9 mmHg (35.0-45.0); sO2 84.6 % (92.0-98.0)
[2019-08-18 12:32] LABS: PO2 48.7 mmHg (80.0-100.0)
--- NOTE | 2019-08-18 13:40 | NUR ---
ASSUMED CARE PT SHIFT CHANGE. UPON INITIAL ASSESSMENT, PT SEEMED TO BE SLEEPING. WHEN ATTEMPTING TO WAKE UP PT, PT DID NOT AROUSE. PT ON BIPAP UPON ASSUMING CARE. [facility] IN ROOM AT TIME OF ASSESSING PT AND CONTACTED DR PUENTE. STERNAL RUB ATTEMPTED, UNSUCCESSFUL. PT SR ON TELE HR IN 60-70S. BP LOW, FLUIDS ORDERED PER CARDIOLOGY. DR PUENTE PAGED, ORDERS RECEIVED. CRITICAL ABGS READ BACK TO DR PUENTE.TRANSFER ORDERS ICU ACKNOWLEDGED AND IMPLEMENTED. SECURITY WAS CALLED TO ASSIST WITH TRANSFERRING PT FROM CHAIR TO BED. PT TX TO ICU, ALL BELOINGINGS TAKEN. DAUGHTER LYDIA WAS CALLED AND UPDATED. ATTEMPTED TO CALL SPOUSE, NO ANSWER- MESSAGE LEFT.
[2019-08-18 14:26] LABS: BE(vivo) 5.2 mmol/L (-2 to +3); HCO3 31.1 mmol/L (22.0-26.0); PCO2 50.5 mmHg (35.0-45.0); PO2 60.9 mmHg (80.0-100.0); pH 7.408 (7.360-7.450); sO2 91.2 % (92.0-98.0)
--- NOTE | 2019-08-18 15:52 | NUR ---
PT ARRIVED ON THE UNIT @ 0915 WITH THE ASSIST OF RN AND RT, PT ARRIVED ON BIPAP UNRESPONISIVE, 02 SATS 90-[address]. DR PUENTE @ BEDSIDE 0930, PT INTUBATED 0940. PROPOFOL GTT USED FOR SEDATION, BP IN 80'S/50'S SECONDARY TO PROPOFOL, 1000 LEVO STARTED TO SUPPORT BP. ALL CRITICAL ABG LABS CALLED TO DR PUENTE, ORDERS RECIEVED EACH TIME. 1500, RN NOTICES THAT PT RHTHYM CHANGED TO A-FIB, RN GETS AN EKG STAT PER PRT, EKG SHOWED A-FIB, DR PICKERING CALLED TO REPORT, ORDERS RECEIVED.
--- NOTE | 2019-08-18 19:10 | NUR ---
@1015 LYDIA DTR CALLS THE UNIT TO ASK ABOUT INFORMATION ABOUT THE PT, RN INFORMS HER THAT SHE IS NOT LISTED ON THE AUTHORIZED CONTACT SECTION AND SO, I AM LEGALLY NOT ALLOWED TO GIVE ANY INFORMATION @ THIS TIME. THE ONLY PERSON LISTED AUTHORIZED CONTACT IS CYNTHIA WHO IS THE GIRLFRIEND/FIANCEE OF PT DTR IS VERY UPSET SAYING THAT SHE IS THE DPOA AND THE ONLY LIVING RELATIVE AND THAT SHE NEEDS TO KNOW ABOUT HER DAD, I ASK HER TO PROVIDE DPOA PAPERWORK SHE HAS, SHE AGREES TO BRING SOME IN BUT SHE CANNOT WAIT TO COME IN TO FIND OUT WHAT IS GOING ON WITH HER DAD. I CONSULT WITH MY CHIEF CLINICAL OFFICER TO SEE WHAT CAN BE DONE, THE PT'S DTR IS THEN ASKED TO VERIFY PT'S AND ADDRESS WITH SHE VERIFIES ACCURATELY. PT'S DTR TO UPDATED AT THIS TIME. @1130 ANOTHER DTR DEON SHOWS UP TO THE UNIT, I AM SO CONFUSED AT THIS TIME, I WAS ON THE IMPRESSION THAT THE ONLY LIVING RELATIVE IS LYDIA, IM CONFUSED HOW SHE GOT INTO THE HOSPITAL, DEON NAME OR CONTACT IS NOT LISTED ANYWHERE IN THE MEDICAL CHART. RN EXPLAINS TO DEON THAT SHE CANNOT BE HERE AT THIS TIME DEON GETS ON THE PHONE WITH LYDIA AND VOICES HER CONCERNS, I TELL LYDIA THAT I THOUGHT SHE TOLD ME THAT SHE WAS THE ONLY RELATIVE, DEON TELLS BE HE HAS MULTIPLE CHILDREN. AT THIS TIME I TELL DEON SHE CAN GO AND SEE HER THAT BUT I GET MY CHIEF CLINICAL OFFICER TO HELP ME WITH THIS CONFUSION. IT IS REVEALED THAT THE PT HAS MUTLIPLE CHILDREN AND SIBLINGS BECAUSE DEON IS IN THE ROOM WE HAD A BROTHER CALL NAMED GOLDIE AND A SISTER FROM [place] CALL WELL. RN IS THEN TOLD THAT CYNTHIA IS IN THE WAITING ROOM, I DONT KNOW HOW THESE PEOPLE ARE GETTING THROUGH SECURITY SINCE THE VISITOR RESTRICTIONS HAVE BEEN PLACED. AT THIS TIME MY CHIEF CLINICAL OFFICER TELLS DEON TO EXIT THE ROOM IN A CALM WAY UNTIL WE CAN CLARIFY WHO IS WHO. DEON WALKS OUT OF THE ROOM GOES THROUGH THE EXIT INTO THE WAITING ROOM SITS ON THE FLOOR AND STARTS TO YELL, AT THIS TIME SECURITY IS CALLED AND SHE AND CYNTHIA ARE EXCORTED OUT OF THE HOSPITAL. RN GETS ANOTHER CALL THAT LYDIA IS IN THE ER WITH DPOA PAPERWORK BUT IS REFUSING TO GIVE IT TO THEM, I TOLD THEM IT WAS OK FOR HER TO COME UP, RN MAKES A COPY OF THE PAPER WORK AND RN IS TOLD TO MAKE CYNTHIA THE DESIGNATED VISITOR, THIS IS EXECUTED AND COMMUNICATED TO MY CHIEF CLINICAL OFFICER.
[2019-08-19] VITALS (38 sets, daily range): BP systolic 110–152; BP diastolic 54–98
[2019-08-19 05:49] LABS: HEMATOCRIT 43.6 % (42.0-52.0); HEMOGLOBIN 14.4 gm/dL (14.0-18.0); MCH 31.1 pg (26.0-34.0); MCHC 32.9 g/dL (28.0-37.0); MCV 94.5 fL (80.0-100.0); RBC 4.62 mil/uL (4.50-6.00); RDW 14.5 % (10.5-14.5); WBC 10.8 thou/uL (4.0-11.0)
[2019-08-19 06:55] LABS: CALCIUM 8.7 mg/dL (8.5-10.1); CREATININE 2.2 mg/dL (0.7-1.3); POTASSIUM 3.8 mmol/L (3.5-5.1)
--- NOTE | 2019-08-19 07:57 | NUR ---
ASSUMED CARE AT 0700, ASSESSMENT AND VITAL SIGNS COMPLETED PER ICU PROTOCOL. DAUGHTER AND DPOA OF PT, LYDIA, CALLED RN, SECURITY CODE PROVIDED. RN PROVIDED PT UPDATE AND STATUS. RN WILL CONTINUE TO MONITOR AND FOLLOW POC.
--- NOTE | 2019-08-19 08:13 | EKG ---
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
--- NOTE | 2019-08-19 13:19 | NUR ---
Intubated 08/17
--- NOTE | 2019-08-19 13:31 | NUR ---
If ileus improves and ready to start enteral nutrition, recommend vital high protein to start 20ml/hr
--- NOTE | 2019-08-19 18:44 | NUR ---
1400 TOOK OVER PT FROM NESHA. TITRATE UP ON PROPOFOL DUE TO PT'S RESTLESSNESS. HEEL PROTECTOR BOOTS PER WOUND CARE.
[2019-08-20] VITALS (41 sets, daily range): BP systolic 96–157; BP diastolic 47–92
[2019-08-20 05:04] LABS: ABSOLUTE NEUTROPHILS 9.1 thou/uL (1.4-8.2); BASOPHILS 0.1 % (0.0-2.0); HEMATOCRIT 43.1 % (42.0-52.0); HEMOGLOBIN 13.8 gm/dL (14.0-18.0); LYMPHOCYTES 10.2 % (24.0-44.0); MCH 30.5 pg (26.0-34.0); MCV 95.3 fL (80.0-100.0); MONOCYTES 5.4 % (1.0-8.0); PLATELET COUNT 245 thou/uL (150-400); POLYS 84.3 % (36.0-66.0); RBC 4.52 mil/uL (4.50-6.00); RDW 14.8 % (10.5-14.5); WBC 10.9 thou/uL (4.0-11.0)
[2019-08-20 05:32] LABS: ALBUMIN 2.6 g/dL (3.4-5.0); CALCIUM 8.1 mg/dL (8.5-10.1); CREATININE 2.6 mg/dL (0.7-1.3); POTASSIUM 3.6 mmol/L (3.5-5.1); TOTAL BILIRUBIN 0.6 mg/dL (0.2-1.0); TOTAL PROTEIN 5.9 g/dL (6.4-8.2)
[2019-08-20 05:45] LABS: BE(vivo) 7.3 mmol/L (-2 to +3); HCO3 30.8 mmol/L (22.0-26.0); PCO2 39.5 mmHg (35.0-45.0); PO2 62.3 mmHg (80.0-100.0); sO2 93.8 % (92.0-98.0)
--- NOTE | 2019-08-20 06:17 | NUR ---
Received report from offgoing RN and assumed patient care. Patient remains on the ventilator and sedated with Propofol. Patient went into A-flutter and Amiodarone was restarted around midnight. Patient had his FIO2 decreased from 80% down to 60% during this shift and tolerated it well. No acute events occurred and VS remained stable.
--- NOTE | 2019-08-20 07:40 | NUR ---
RECEIVED REPORT FROM BEBE POOLE. ASSUMED CARE OF PATIENT.
[2019-08-20 12:26] LABS: URINE CREATININE-RANDOM* 53.8 mg/dL; URINE PROTEIN-RANDOM* 23.1 mg/dL (<11.9)
[2019-08-21] VITALS (32 sets, daily range): BP systolic 111–141; BP diastolic 55–82
[2019-08-21 05:27] LABS: BE(vivo) 11.3 mmol/L (-2 to +3); PCO2 46.2 mmHg (35.0-45.0); pH 7.509 (7.360-7.450); sO2 92.2 % (92.0-98.0)
[2019-08-21 05:53] LABS: ABSOLUTE NEUTROPHILS 8.9 thou/uL (1.4-8.2); BASOPHILS 0.1 % (0.0-2.0); HEMATOCRIT 43.3 % (42.0-52.0); HEMOGLOBIN 14.2 gm/dL (14.0-18.0); LYMPHOCYTES 9.3 % (24.0-44.0); MCHC 32.9 g/dL (28.0-37.0); MCV 94.1 fL (80.0-100.0); MONOCYTES 6.9 % (1.0-8.0); PLATELET COUNT 239 thou/uL (150-400); POLYS 83.7 % (36.0-66.0); WBC 10.6 thou/uL (4.0-11.0)
[2019-08-21 06:11] LABS: ALBUMIN 2.8 g/dL (3.4-5.0); CALCIUM 8.3 mg/dL (8.5-10.1); CREATININE 2.8 mg/dL (0.7-1.3); PHOSPHORUS 5.8 mg/dL (2.5-4.9); POTASSIUM 3.6 mmol/L (3.5-5.1); TOTAL BILIRUBIN 0.6 mg/dL (0.2-1.0)
--- NOTE | 2019-08-21 06:30 | NUR ---
PT ON PROPOFOL AT 40 AT START OF SHIFT, SEDATION VACATION AT 2003 AND LASTED 4 MINUTES. PT ABLE TO FOLLOW COMMANDS, OPEN EYES, WIGGLE TOES, SQUEEZ HANDS AND ALSO HAVE POSITIVE COUGH AND GAG REFLEX. PT BECAME FEBRILE AT 0000 WITH A TEMP OF 100.0. TYLENOL GIVEN, ICE PACKS APPLIED TO GROIN, UNDERARMS AND NECK. TEMP CAME DOWN TO 97.7 AT 0200. PT IS STABLE NOW. NO ACUTE ISSUES OVER NOC. GREAT U/O OF 1155ML THIS SHIFT, WILL CONTINUE TO CLOSELY MONITOR.
--- NOTE | 2019-08-21 07:27 | HC ---
[facility] [place] [place] [address] CONSULTATION Name: GURWINDER FRANCISCO Room #: 249-P ADM IN M.R.#: [id number] Admission: 08/13/19 Attend Phys: Yo Molina MD Discharge: Date of : 62 Report #: [id number] THIS REPORT FOR: cc: AZUCENA - Yarelis family physician/PCP AZUCENA - Yarelis family physician/PCP Haile Monahan MD ~ CC: [facility] physician/PCP Yo Molina REASON FOR THE CONSULTATION: Acute kidney injury. REASON FOR THE PRESENTATION: Shortness of breath and lower extremity edema. HISTORY OF PRESENT ILLNESS: This is obtained from the medical chart. Unfortunately, the patient is currently intubated and not able to provide me with the history. Apparently, the patient presented on 08/13/2019 with shortness of breath, worsening lower extremity edema. Back then, he had significantly elevated blood pressure. He carries a diagnosis of AFib, flutter, status post ablation. Listed amongst his outpatient medications is lisinopril, terazosin, furosemide. The patient's blood pressure on arrival was 210. He had worsening pulmonary status and had to be intubated. His blood pressure was managed appropriately; however, with a blood pressure reduction, his creatinine has started to go up mandating a Nephrology consultation. The patient is currently intubated and not able to provide me with any details. ALLERGIES LISTED: Hay fever. FAMILY HISTORY: Unobtainable given the fact that the patient is currently intubated. MEDICATIONS: Obtained from the medical chart. 1. Lisinopril. 2. Atorvastatin. 3. Carvedilol. 4. Lasix. 5. Abilify. PAST MEDICAL HISTORY: Obtained from the medical chart. 1. Hypertension. 2. Diabetes mellitus. 3. Hyperlipidemia. 4. Ablation for flutter. REVIEW OF SYSTEMS: Unable to obtain given the patient's current mental status. SOCIAL HISTORY: Unable to obtain given the patient's current mental status. [address] [address] CONSULTATION Name: GURWINDER FRANCISCO KELSO Room #: 249-P ADM IN M.R.#: [id number] Admission: 08/13/19 Attend Phys: Yo Molina MD Discharge: Date of : 62 Report #: [id number] PHYSICAL EXAMINATION: GENERAL: He is intubated. Pulse rate is 75, respiratory rate is 19. Blood pressure is currently 150/85. HEAD AND NECK: ET tube in place. CHEST: Decreased air entry bilaterally. CARDIOVASCULAR: No rub detected. ABDOMEN: Soft. LOWER EXTREMITIES: Extensive bilateral lower extremity edema. LABORATORY VALUES: From today revealed the following: Sodium is 132, potassium is 3.6, chloride is 93, BUN is 63, creatinine is 2.6. White blood cell count is 10.9, hemoglobin is 13.8. Urine showed trace protein on arrival. ASSESSMENT, IMPRESSION, AND PLAN: 1. Acute kidney injury due to abrupt reduction in blood pressure. 2. Hypertensive urgency. 3. Respiratory failure. 4. The rise in the patient's creatinine coincides with the significant reduction in the patient's blood pressure. This is due to hemodynamic changes of the kidneys. 5. I will start other diagnostic workup to rule out other differential diagnosis. 6. The patient will need to be treated for his hypertension with guidelines recommended medications including an angiotensin receptor sondra, a thiazide diuretic. 7. He has a significant chest x-ray finding of fluid overload along with peripheral edema and he will need significant diuresis. 8. Management of his lung issues as per the pulmonary team. 9. Cardiac team is following. <ELECTRONICALLY SIGNED> By: Haile Mnoahan MD 08/21/19 0727 1125 1259 Haile Monahan MD /nt
--- NOTE | 2019-08-21 17:26 | NUR ---
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 Patient with COPD/CHF. Casemgt following for dc planning.
--- NOTE | 2019-08-21 19:04 | NUR ---
NO CHANGES TO VENT SETTINGS TODAY. CONTINUES ON 12 OF PEEP AND .50 O2. AFEBRILE. SR WITH PVCS, NO AFIB NOTED TODAY. AMMIODARONE DRIP AT .5 MG/MIN OR 16.7CC/HR. CYNTHIA AT BEDSIDE MOST OF SHIFT. QUESTIONS ASKED AND ANSWERED, PLAN OF CARE DISCUSSED. PROGRESSING SLOWLY TOWARD PLAN OF CARE.
[2019-08-22] VITALS (11 sets, daily range): BP systolic 104–144; BP diastolic 60–94
[2019-08-22 05:34] LABS: HCO3 31.2 mmol/L (22.0-26.0); PCO2 38.3 mmHg (35.0-45.0); pH 7.529 (7.360-7.450); sO2 92.1 % (92.0-98.0)
[2019-08-22 05:35] LABS: PO2 55.8 mmHg (80.0-100.0)
[2019-08-22 06:22] LABS: ABSOLUTE NEUTROPHILS 9.8 thou/uL (1.4-8.2); BASOPHILS 0.2 % (0.0-2.0); EOSINOPHILS 0.1 % (0.0-3.0); HEMATOCRIT 45.2 % (42.0-52.0); HEMOGLOBIN 14.7 gm/dL (14.0-18.0); MCH 30.5 pg (26.0-34.0); MCHC 32.5 g/dL (28.0-37.0); MONOCYTES 6.9 % (1.0-8.0); PLATELET COUNT 226 thou/uL (150-400); POLYS 84.8 % (36.0-66.0); RBC 4.81 mil/uL (4.50-6.00); RDW 14.8 % (10.5-14.5); WBC 11.6 thou/uL (4.0-11.0)
[2019-08-22 06:39] LABS: ALBUMIN 2.8 g/dL (3.4-5.0); CALCIUM 8.3 mg/dL (8.5-10.1); CREATININE 2.6 mg/dL (0.7-1.3); POTASSIUM 3.6 mmol/L (3.5-5.1); TOTAL BILIRUBIN 0.8 mg/dL (0.2-1.0); TOTAL PROTEIN 6.3 g/dL (6.4-8.2)
--- NOTE | 2019-08-22 07:37 | NUR ---
Patient remains on the ventilator and is not ready for weaning at this time. He is sedated with Propofol. Patient had to have his FIo2 increased to 85% during this shift. Dr. Hernandez notified of the increase and the critical ABG lab values. No acute events occurred during this shift, however, patient at this time is not progressing toward goal.
--- NOTE | 2019-08-22 18:49 | NUR ---
PT REMAINED ON 85% ON VENT. FOLLOW SOME COMMANDS. CONTINUE ON AMIODARONE AND PROPOFOL. COPIOUS ORAL SECRETIONS. PT STAYED WITH PT MOST OF THE DAY. EMOTIONAL SUPPORT GIVEN.
[2019-08-23] VITALS (56 sets, daily range): BP systolic 95–150; BP diastolic 55–102
[2019-08-23 05:48] LABS: ALBUMIN 2.7 g/dL (3.4-5.0); CALCIUM 8.3 mg/dL (8.5-10.1); CREATININE 2.4 mg/dL (0.7-1.3); POTASSIUM 3.7 mmol/L (3.5-5.1)
--- NOTE | 2019-08-23 06:41 | NUR ---
Patient remains of the ventilator with Propofol infusing for sedation and Amiodarone infusing. Patient went in and out of A-fib during this shift but no other acute events occurred. VS remained stable and patient shows a little improvement in status.
--- NOTE | 2019-08-23 09:00 | NUR ---
PT ETT COMING OFF FREQUENTLY. DR. PUENTE HERE AND REINTUBATED WITH 8.0 ETT. TOTAL 40 SUCCYTALCHOLINE GIVEN. + DIFFICULT INTUBATION BUT PT TOLORATED WELL.
--- NOTE | 2019-08-23 10:00 | NUR ---
DR. TORO HERE. REPORTED HIGH RISUDUALS AND TUBE FEEDING ON HOLD. PT HAS NOT HAD A BM. REGLAN STARTED AND SUPPOSITORY GIVEN.
--- NOTE | 2019-08-23 16:00 | NUR ---
DR. BAUMANN CALLED RE AFIB RATE 105-125. ORDERS GIVEN. AMIODARONE GTT TURNED UP TO 1MG/HR.
[2019-08-24] VITALS (15 sets, daily range): BP systolic 108–135; BP diastolic 65–85
[2019-08-24 05:23] LABS: ABSOLUTE NEUTROPHILS 13.7 thou/uL (1.4-8.2); BASOPHILS 0.3 % (0.0-2.0); HEMATOCRIT 43.8 % (42.0-52.0); HEMOGLOBIN 14.2 gm/dL (14.0-18.0); LYMPHOCYTES 5.9 % (24.0-44.0); MCH 30.6 pg (26.0-34.0); MCHC 32.4 g/dL (28.0-37.0); MCV 94.4 fL (80.0-100.0); MONOCYTES 6.5 % (1.0-8.0); PLATELET COUNT 231 thou/uL (150-400); POLYS 87.3 % (36.0-66.0); RBC 4.64 mil/uL (4.50-6.00); RDW 14.6 % (10.5-14.5); WBC 15.7 thou/uL (4.0-11.0)
[2019-08-24 05:23] LABS: BE(vivo) 6.6 mmol/L (-2 to +3); HCO3 29.9 mmol/L (22.0-26.0); PCO2 38.3 mmHg (35.0-45.0); PO2 80.5 mmHg (80.0-100.0); sO2 96.8 % (92.0-98.0)
[2019-08-24 05:46] LABS: ALBUMIN 2.6 g/dL (3.4-5.0); CREATININE 2.4 mg/dL (0.7-1.3); TOTAL BILIRUBIN 0.8 mg/dL (0.2-1.0); TOTAL PROTEIN 6.3 g/dL (6.4-8.2)
[2019-08-24 06:02] LABS: CALCIUM 8.2 mg/dL (8.5-10.1)
--- NOTE | 2019-08-24 11:44 | NUR ---
If ready to restart TF, back rate down to 20ml/hr. Final goal is still 35ml/hr.
--- NOTE | 2019-08-24 15:50 | NUR ---
chart review. pt remains on vent. will cont following as needed for dc needs.
--- NOTE | 2019-08-24 17:08 | NUR ---
PT REMIAN ON MECHANICAL VENTILATION DOWN TO 60% FIO2. OG TUBE TO LIS THIS SHIFT AND TUBE FEEDING BEING HELD. WILL CONTINUE TO ASSESS.
[2019-08-25] VITALS (24 sets, daily range): BP systolic 110–151; BP diastolic 63–97
--- NOTE | 2019-08-25 06:00 | NUR ---
REMAINS INBTUBATED AND SEDATED. PROPOFOL GTT AT 35 MCG AMIO GTT 0.5 MG OPEN EYES FOLLOWS SIMPLE COMMANDS 1400 CC UO THIS SHIFT. BATHED. WILL CONT TO MONITOR.
[2019-08-25 06:12] LABS: ALBUMIN 2.7 g/dL (3.4-5.0); CALCIUM 8.5 mg/dL (8.5-10.1); CREATININE 2.2 mg/dL (0.7-1.3); PHOSPHORUS 4.9 mg/dL (2.5-4.9); POTASSIUM 3.7 mmol/L (3.5-5.1)
[2019-08-25 09:22] LABS: HEMATOCRIT 45.2 % (42.0-52.0); HEMOGLOBIN 14.7 gm/dL (14.0-18.0); MCHC 32.6 g/dL (28.0-37.0); MCV 95.1 fL (80.0-100.0); RBC 4.75 mil/uL (4.50-6.00); RDW 14.9 % (10.5-14.5); WBC 17.9 thou/uL (4.0-11.0)
--- NOTE | 2019-08-25 14:39 | NUR ---
ASSESSMENTS AND INTERVENTIONS DOCCUMENTED. PATIENT HAVING SMALL CLOTS IN URINE THIS AM. DR. LOREDO notified. GERTRUDE AT BED SIDE, ORDERS TO START CBI. PATIENT STARTED ON CBI AROUND 1200. 90 CCS OF STERILE NS IRRIGATED INTO BLADDER WITH NO CLOTS SEEN. BLADDER CONTINUES TO DRAIN, BLOOD TINGED URINE. FIANCE AT BEDSIDE. SHE WAS UPDATED AND EDUCATED ABOUT POC.
[2019-08-26 00:01] VITALS: BP 130/76
[2019-08-26 01:00] VITALS: BP 143/85
--- NOTE | 2019-08-26 05:42 | NUR ---
ASSUMED CARE OF PATIENT AT 1900. VSS. CBI TITRATED TO KEEP URINE CLEAR AND CATHETER PATENT. AWAKENS EASILY, PROPOFOL GTT STILL INFUSING. WORKING TOWARDS POC GOALS.
[2019-08-26 05:49] LABS: ALBUMIN 2.7 g/dL (3.4-5.0); CALCIUM 8.7 mg/dL (8.5-10.1); CREATININE 1.8 mg/dL (0.7-1.3); PHOSPHORUS 4.9 mg/dL (2.5-4.9); POTASSIUM 3.8 mmol/L (3.5-5.1)
[2019-08-26 11:18] LABS: APTT 26.6 Seconds (24.5-32.8); D-DIMER 0.42 ug/mLFEU (0.19-0.50); INR 1.2
[2019-08-26 11:24] LABS: FIBRINOGEN 440.4 mg/dL (210-360)
--- NOTE | 2019-08-26 13:35 | NUR ---
ASSESSMENTS AND INTERVENTIONS DOCCUMENTED. DR. WADE ROUNDING THIS SHIFTAND ORDERS TO DC BLADDER IRRIGATION. PATIENTS URINE IS CLEAR AND WITHOUT CLOTS. PATIENT FIANCE AT BEDSIDE. DPOA CALLING, STATING IT IS OKAY FOR FIANCE TO BE DESIGNATED VISITOR TOMORROW AND IT IS OKAY FOR FACETIME WITH FAMILY.
[2019-08-26 19:00] VITALS: BP 117/67
[2019-08-26 20:01] VITALS: BP 121/64
[2019-08-26 21:00] VITALS: BP 118/64
[2019-08-27] VITALS (23 sets, daily range): BP systolic 93–125; BP diastolic 51–76
[2019-08-27 05:42] LABS: BE(vivo) 3.3 mmol/L (-2 to +3); HCO3 28.2 mmol/L (22.0-26.0); PCO2 43.5 mmHg (35.0-45.0); PO2 74.5 mmHg (80.0-100.0); pH 7.429 (7.360-7.450); sO2 95.3 % (92.0-98.0)
[2019-08-27 06:08] LABS: HEMATOCRIT 45.6 % (42.0-52.0); MCH 30.8 pg (26.0-34.0); MCHC 32.8 g/dL (28.0-37.0); MCV 93.9 fL (80.0-100.0); RBC 4.85 mil/uL (4.50-6.00); RDW 14.5 % (10.5-14.5); WBC 16.7 thou/uL (4.0-11.0)
[2019-08-27 06:35] LABS: ALBUMIN 2.6 g/dL (3.4-5.0); CALCIUM 8.6 mg/dL (8.5-10.1); CREATININE 1.8 mg/dL (0.7-1.3); PHOSPHORUS 5.3 mg/dL (2.5-4.9); POTASSIUM 3.6 mmol/L (3.5-5.1)
--- NOTE | 2019-08-27 18:38 | NUR ---
ASSUMED CARE @ 0700 08/27/19, PT ASSESSMENTS AND VSS COMPLETE PER ICU PROTOCOL. PT ABLE TO FOLLOW COMMANDS WHILE ON SEDATION. PT SWITCHING BACK AND FROM SR TO AFIB, DR PICKERING AWARE OF THIS. CPAP PERFORMED, INCREASED SOB NOTED, PT SWITCHED TO A/C. PT ABLE TO TOLERATE TF @ GOAL WITH 60-120 RESIDUALS. PT'S FIANCEE @ BEDSIDE FOR MOST OF THE SHIFT.
[2019-08-28] VITALS (17 sets, daily range): BP systolic 92–146; BP diastolic 45–88
[2019-08-28 03:10] LABS: ABSOLUTE NEUTROPHILS 13.2 thou/uL (1.4-8.2); BASOPHILS 0.7 % (0.0-2.0); EOSINOPHILS 0.5 % (0.0-3.0); HEMATOCRIT 46.1 % (42.0-52.0); HEMOGLOBIN 14.9 gm/dL (14.0-18.0); LYMPHOCYTES 9.7 % (24.0-44.0); MCH 30.5 pg (26.0-34.0); MCHC 32.3 g/dL (28.0-37.0); MCV 94.4 fL (80.0-100.0); MONOCYTES 9.7 % (1.0-8.0); PLATELET COUNT 235 thou/uL (150-400); POLYS 79.4 % (36.0-66.0); RBC 4.89 mil/uL (4.50-6.00); RDW 14.7 % (10.5-14.5); WBC 16.7 thou/uL (4.0-11.0)
[2019-08-28 03:17] LABS: ALBUMIN 2.7 g/dL (3.4-5.0); CALCIUM 8.6 mg/dL (8.5-10.1); CREATININE 1.9 mg/dL (0.7-1.3); POTASSIUM 3.7 mmol/L (3.5-5.1)
--- NOTE | 2019-08-28 09:58 | NUR ---
Patient underwent weaning trial, ventilator settings switched to BiPAP with a PEEP of 6. Patient did not tolerate vent changes and had to be switched back to previous settings. Nurse spoke to patients young Martínez, at the bedside and was updated on patients status and declination to progress towards goals. Patient still requires heavy respiratory support.
--- NOTE | 2019-08-28 11:38 | NUR ---
chart review, cont try wean trial, did not tolerated vent wean trail this am. remains intubated, no anticipated dc over weekend, will cont following as needed for dc needs.
[2019-08-29] VITALS (61 sets, daily range): BP systolic 68–118; BP diastolic 37–69
[2019-08-29 06:00] LABS: HEMATOCRIT 45.2 % (42.0-52.0); HEMOGLOBIN 14.6 gm/dL (14.0-18.0); MCH 30.7 pg (26.0-34.0); MCHC 32.2 g/dL (28.0-37.0); MCV 95.3 fL (80.0-100.0); PLATELET COUNT 215 thou/uL (150-400); RBC 4.74 mil/uL (4.50-6.00); RDW 14.7 % (10.5-14.5); WBC 20.9 thou/uL (4.0-11.0)
[2019-08-29 06:33] LABS: ALBUMIN 2.6 g/dL (3.4-5.0); CALCIUM 8.5 mg/dL (8.5-10.1); PHOSPHORUS 4.4 mg/dL (2.5-4.9); POTASSIUM 3.8 mmol/L (3.5-5.1)
[2019-08-29 10:19] LABS: ABSOLUTE NEUTROPHILS 18.2 thou/uL (1.4-8.2); ATYPICAL LYMPHS 1 %
--- NOTE | 2019-08-29 10:43 | NUR ---
BP LOW THIS AM. DISCUSSED WITH DR MOSES AND FLUID BOLUS GIVEN AND TUBE FEEDING WATER FLUSHES INCREASED. BP IMPROVED FOLLOWING FLUID BOLUS. INTERMITTANT BURSTS OF A-FIB 120-140'S. WILL CONTINUE TO MONITOR PATIENT
--- NOTE | 2019-08-29 19:38 | NUR ---
CPAP TRIAL DONE X2 TODAY. THIS AM O2 SAT DECREASED TO 86% AFTER 10 MIN AND CHANGED BACK TO PRIOR AC SETTINGS. HAVING LARGE AMOUNT OF SECRETIONS. DISCUSSED WITH DR OSORIO. PLACED ON SECOND CPAP TRIAL AT 1600 AND CONTINUES ON CPAP AT THIS TIME, TOLERATING WELL. PT'S SISTER AT BEDSIDE THIS AFTERNOON. SPOKE WITH PT'S SIGNIFICANT OTHER CYNTHIA X 2 TODAY AND UPDATED HER. REPORT GIVEN TO COMPETITIVE SHOPPER RN.
[2019-08-29 21:03] LABS: BE(vivo) 2.8 mmol/L (-2 to +3); HCO3 29.9 mmol/L (22.0-26.0); PCO2 55.7 mmHg (35.0-45.0); PO2 74.4 mmHg (80.0-100.0); pH 7.347 (7.360-7.450)
[2019-08-30] VITALS (49 sets, daily range): BP systolic 90–137; BP diastolic 51–92
--- NOTE | 2019-08-30 03:49 | NUR ---
PT REMAINS LIGHTLY SEDATED WITH FENTANYL AND VERSED WHILE ON THE VENTILATOR. CPAP TRIAL UNTIL AROUND 2230, WHEN RT PLACED HIM BACK ON A/C VENT SETTINGS. PT TOLERATED CPAP WELL. NO SIGNIFICANT TACHYPENIA OR TACHYCARDIA. MAINTAINED O2 SATS >90% DURING CPAP TRIAL. PT ARROUSES TO VERBAL OR TACTILE STIMULI AND IS ABLE TO FOLLOW SIMPLE COMMANDS. REMAINS IN BILATERAL SOFT WRIST RESTRAINTS TO PREVENT DISCONNECTING TUBES OR LINES. REPOSITIONED TO PREVENT SKIN BREAKDOWN. ORAL CARE PROVIDED. SUCTIONED LARGE AMOUNT OF ALMANZAR ORAL AND TRACHEAL SECRETIONS. TF VIA OGT; RESIDUALS <150ML. FALL PRECAUTIONS IN PLACE. PROGRESSING SLOWLY TOWARD POC GOALS. WILL CONTINUE TO MONITOR FURTHER.
[2019-08-30 06:18] LABS: ALBUMIN 2.4 g/dL (3.4-5.0); CALCIUM 8.8 mg/dL (8.5-10.1); PHOSPHORUS 3.7 mg/dL (2.5-4.9); POTASSIUM 3.7 mmol/L (3.5-5.1)
--- NOTE | 2019-08-30 14:55 | NUR ---
ASSUMED CARE @ 0700 08/30/19, PT ASSESSMENTS AND VSS COMPLETE PER ICU PROTOCOL. PT ENCOUNTERED ON FENTANYL AND VERSED GTT FOR SEDATION FOR VENT MANAGEMENT. SEDATION VACATION PERFORMED, PT DID NOT TOLERATE AEB HR 140-160. HR SUSTAINING IN THE 140'S, DR BYERS CALLED, PT PLACED ON CARDIZEM GTT IN ADDITION TO AMIO GTT PT ALREADY ON. DR OSORIO ROUNDS THIS AFTERNOON, RN EXPLAINS THAT PT HR GOES IN THE 140-160 RANGE WHEN OFF SEDATION, IT IS CONCLUDED THAT PT IS NOT READY FOR A CPAP TODAY. SHAUN BARRERA @ BEDSIDE 1150- 1500, QUESTIONS ANSWERED. NO COMPLICATIONS NOTED. WILL CONT TO MONITOR.
--- NOTE | 2019-08-30 15:38 | NUR ---
ASSUMED CARE @ 0700 08/30/19, PT ASSESSMENTS AND VSS COMPLETE PER ICU PRT. PT ON FENTANYL AND VERSED GTT FOR SEDATION MANAGEMENT. PT ABLE TO TOLERATE SEDATION VACATION. DR MURDOCK HERE THIS AM TO ROUND, NO NEW ORDERS GIVEN AT THIS TIME. DR BYERS AT BEDSIDE THIS AM ALSO NO NEW ORDERS RECIEVED AT THAT TIME. LYDIA, PT'S DPOA CALLED TO ASK IF MACHINE FEED OPERATOR COULD GIVE HER A CALL, THIS MESSAGE IS PASSED DOWN TO DR BYERS. DPOA ALSO HAD CONCERNS ABOUT PNA DX AND ABX PT IS CURRENTLY ON, I PLACED A CALL TO DR OSORIO, DR OSORIO TOLD RN TO DIRECT THE CALL TO THE PHYSICIAN WHO PLACED THE ORDER FOR ABX, THIS IS DR MURDOCK. THIS IS COMMUINICATED TO DR MURDOCK AND HE CALLS THE DPOA TO CLARIFY DX AND ABX. DR OSORIO ROUNDS IN THE AFTERNOON, VERBAL ORDERS TO PLACE PT ON CPAP AND ABG AFTER, THIS IS PASSED DOWN TO THE RT ON THE UNIT.
[2019-08-30 19:52] LABS: HCO3 29.7 mmol/L (22.0-26.0); PCO2 53.2 mmHg (35.0-45.0); PO2 58.9 mmHg (80.0-100.0); pH 7.365 (7.360-7.450); sO2 89.3 % (92.0-98.0)
[2019-08-31] VITALS (32 sets, daily range): BP systolic 97–137; BP diastolic 59–84
--- NOTE | 2019-08-31 03:21 | NUR ---
PT REMAINED ON CPAP UNTIL AROUND 2129, WHEN RT PLACED HIM BACK ON THE VENTILATOR. FIO2 INCREASED TO 55% SPO2 WAS 88-90%. SPO2 HAS SINCE BEEN >91%. SUCTIONED COPIOUS AMOUNTS OF THICK BEIGE SECRETIONS FROM ET TUBE. ORAL CARE PROVIDED. TF AND SEDATION (FENTANYL AND VERSED) RESUMED ONCE PATIENT WAS OFF CPAP. BILATERAL SOFT WRIST RESTRAINTS IN PLACE. AFEBRILE. FALL PRECAUTIONS IN PLACE. PROGRESSING SLOWLY TOWARD POC GOALS. WILL CONTINUE TO MONITOR FURTHER.
[2019-08-31 05:47] LABS: MCH 30.8 pg (26.0-34.0); MCHC 31.9 g/dL (28.0-37.0); MCV 96.3 fL (80.0-100.0); RBC 4.56 mil/uL (4.50-6.00); RDW 14.9 % (10.5-14.5); WBC 17.2 thou/uL (4.0-11.0)
[2019-08-31 06:32] LABS: ALBUMIN 2.4 g/dL (3.4-5.0); CALCIUM 8.6 mg/dL (8.5-10.1); CREATININE 1.8 mg/dL (0.7-1.3); POTASSIUM 3.9 mmol/L (3.5-5.1)
--- NOTE | 2019-08-31 15:46 | NUR ---
pt remains on vent with cpap trails. tf for nutritional support. will cont following as needed for dc needs.
--- NOTE | 2019-08-31 18:00 | NUR ---
young saunders, provided much support to pt. updated her on pt status, she called several family members to allow for him to see them and for them to speak with him. pt very alert today, using cell phone and sometimes making calls to family/friends. progressing.
[2019-09-01] VITALS (27 sets, daily range): BP systolic 94–124; BP diastolic 46–72
[2019-09-01 05:54] LABS: HEMATOCRIT 45.5 % (42.0-52.0); HEMOGLOBIN 14.1 gm/dL (14.0-18.0); MCH 30.1 pg (26.0-34.0); MCV 97.1 fL (80.0-100.0); RBC 4.69 mil/uL (4.50-6.00); RDW 15.2 % (10.5-14.5)
[2019-09-01 06:29] LABS: ALBUMIN 2.5 g/dL (3.4-5.0); CALCIUM 8.7 mg/dL (8.5-10.1); CREATININE 1.7 mg/dL (0.7-1.3); PHOSPHORUS 3.8 mg/dL (2.5-4.9); POTASSIUM 3.6 mmol/L (3.5-5.1)
--- NOTE | 2019-09-01 08:04 | NUR ---
ASSUMED PATIENT CARE AT 1845. PATIENT IS BREATHING FINE ON VENTILATOR EVIDENCED BY ASSESSMENTS AND CONTINUOUS SATURATION MONITORING. FREQUENT TURNS WITH SKIN CARE PROVIDED. PATIENT WAS PLACED ON CPAP TRIAL AT APPROXIMATELY 0600 BY RT AND IS DOING FINE.
--- NOTE | 2019-09-01 09:56 | NUR ---
Since tube feed formula changed to Nepro, recommend new goal rate of 45ml/hr and add 1 packet beneprotein in each ordered water flush.
[2019-09-01 10:14] LABS: BE(vivo) 2.7 mmol/L (-2 to +3); HCO3 30.6 mmol/L (22.0-26.0); PO2 81.9 mmHg (80.0-100.0)
[2019-09-01 10:15] LABS: pH 7.325 (7.360-7.450)
--- NOTE | 2019-09-01 18:50 | NUR ---
ASSUMED CARE @ 0700 09/01/19, PT ASSESSMENTS AND VSS COMPLETE PER ICU PROTOCOL. PT ENCOUNTERED ON FENTANYL AND VERSED AND ON CPAP, SEDATION TURNED OFF AT INTIAL ASSESSMENT. ABG DONE @ 1005 AND CRITICALS CALLED TO DR OSORIO, PT FLIPPED BACK TO A/C AND SEDATION TURNED BACK ON. DR WADE TO THE BEDSIDE THIS AM, TF CHANGED TO NEPRO. DR MURDOCK TO BEDSIDE ORDERS RECIEVED. LYDIA DENNIS CALLED TO UPDATE ABOUT PT AND TO INFORM THAT THE ICU IS CLOSED FOR VISITORS TODAY PER SECURITY ADMINISTRATOR OF THE UNIT. RN VIDEO CALLS PT TEODORO VIA PT'S PHONE @ [phone] TO VISIT WITH PT.
[2019-09-02] VITALS (58 sets, daily range): BP systolic 61–182; BP diastolic 35–128
[2019-09-02 06:04] LABS: HEMATOCRIT 46.7 % (42.0-52.0); HEMOGLOBIN 14.7 gm/dL (14.0-18.0); MCH 30.6 pg (26.0-34.0); MCHC 31.5 g/dL (28.0-37.0); RBC 4.81 mil/uL (4.50-6.00); RDW 14.9 % (10.5-14.5); WBC 18.5 thou/uL (4.0-11.0)
[2019-09-02 06:18] LABS: ALBUMIN 2.6 g/dL (3.4-5.0); CALCIUM 8.6 mg/dL (8.5-10.1); CREATININE 2.1 mg/dL (0.7-1.3); PHOSPHORUS 5.4 mg/dL (2.5-4.9); POTASSIUM 3.6 mmol/L (3.5-5.1)
--- NOTE | 2019-09-02 08:26 | NUR ---
PT SLEEPING WELL DURING NOC. WEANED DOWN SEDATION OF FENTANNYL AND PROPOFOL TOLERATED. RESTRAINSTS DC'D PT FOLLOWS COMMANDS.LS-COARSE, CLEAR WITH SUCTIONING. THICK BIEGE SECRETIONS VIA ETT. STRONG COUGH TO EXPECTORATE CLEAR OORAL SECRETON. 02SAT 98 ON 40%. PT PROGRESSING TOWARD GOALS EXCEPT NOT TOLERATING TUBE FEEDING. RESIUAL 300+. OTHERWISE PROGRESSING, CONT PLAN OF CARE
--- NOTE | 2019-09-02 08:50 | NUR ---
Called Chalo from cardiology. Pt back in afib and hypotensive. Dr. Silvestre called. Orders given. NS bolus given. Pt HOB down and versed is off, pt more lethargic but follows commands.
--- NOTE | 2019-09-02 09:01 | NUR ---
Dr. Molina here. Update given.
[2019-09-02 13:23] LABS: BE(vivo) 1.8 mmol/L (-2 to +3); HCO3 27.9 mmol/L (22.0-26.0); PCO2 49.3 mmHg (35.0-45.0); PO2 63.9 mmHg (80.0-100.0); pH 7.371 (7.360-7.450); sO2 91.6 % (92.0-98.0)
--- NOTE | 2019-09-02 22:58 | NUR ---
PT A&O X 4. EXTUBATED EARLIER TODAY. 6L NC. TOOK OVER PT FOR FOUR HOURS DUE TO STAFFING. REPORT GIVEN PAULINO POOLE. PT IN BED WITH ALARM ON. PERSONAL ITEMS WITHIN REACH.
[2019-09-03] VITALS (19 sets, daily range): BP systolic 120–186; BP diastolic 79–96
--- NOTE | 2019-09-03 04:45 | NUR ---
Took over care of pt. around 2315. Pt. is on 6l/NC and maintaining O2 sat greater than 90%. He has loose cough and able to clear secretions. Shortness of breath with exertion. Denies any pain. Able to help turn from side to side slowly. Afebrile. Complete bed bath given. SR with PAC's. Slept some. FMS with liquid stool. Making progress towards care plan goals.
[2019-09-03 05:15] LABS: ALBUMIN 3.2 g/dL (3.4-5.0); CALCIUM 8.8 mg/dL (8.5-10.1); CREATININE 1.8 mg/dL (0.7-1.3); PHOSPHORUS 3.3 mg/dL (2.5-4.9); POTASSIUM 3.2 mmol/L (3.5-5.1)
--- NOTE | 2019-09-03 15:25 | NUR ---
CARE TEAM INDICATED THAT PT WAS EXTUBATED THIS DAY. PT, OT, AND ST SAW PT TODAY. CARE TEAM INDICATED PT IS MEDICALLY STABLE TO MOVE OUT OF ICU. PT IS TO TRANSFER TO 208. CM CALLED AND SPOKE WITH PT'S DTR/DPOA SHE IS AWARE. CM TO FOLLOW INDICATED WITH DC PLANNING.
--- NOTE | 2019-09-03 19:34 | NUR ---
PT ALERT AND ORIENTED X4. FREQUENT PRODUCTIVE COUGH AND VOICE VERY HOARSE. PT/OT/ST RECONSULTED. DIET STARTED PER ST RECOMMENDATIONS AND PT TOLERATING WELL. PATIENT UP TO CHAIR WITH MAX ASSIST X2 AND SAT IN CHAIR FOR MOST OF THE DAY TODAY. FECAL MANAGEMENT SYSTEM DISCONTINUED PER PATIENT REQUEST. ORDER TO TRANSFER TO CRITICAL CARE TELE. REPORT GIVEN TO VIRGILIO PULIDO. PT'S AND DAUGHTER INFORMED OF TRANSFER.
--- NOTE | 2019-09-03 19:36 | NUR ---
PT CARE ASSUMED AT 1530. ASSESSMENT CHARTED. MEDICATION CHARTED. PT ARRIVED IN BARIATRIC CHAIR ASKED TO STAY IN IT UNTIL 184. A X 2 TRANSFER; PT WEAK. PLACE LEWIS STAT LOCK, NONE WAS PRESENT. PICC RT UPPER ARM.
--- NOTE | 2019-09-03 23:23 | NUR ---
PT C/O PAIN TO CHEST POINTING AT THE EPIGASTRIC AREA,FEELS LIKE PRESSURE, RATING PAIN AT 6/10 ON 1-10 PAIN SCALE.HE DENIES PAIN RADIATING OR ANY OTHER ASSOCIATED SYMPTOMS.VSS B/P 120/87(76),HR 70;RESP 20;O2 SAT 90% ON O2 AT 5LITERS PNC,BUMP O2 TO 6LITERS.TEMP 98.1..MORHINE 2MG GIVEN PER ORDERS. PT VERBALIZED RELIEF AFTER FEW MINUTES RATING PAIN AT 2/10 AT THIS TIME.PT ALSO HAVING CONSTANT CONGESTED COUGH.LUNGS SOUNDS COARSE,DIMINSHED LOWER BASES.WILL CONT TO MONITOR PER POC.
[2019-09-04 04:45] VITALS: BP 119/85
[2019-09-04 06:51] LABS: ALBUMIN 2.9 g/dL (3.4-5.0); CALCIUM 8.6 mg/dL (8.5-10.1); CREATININE 1.6 mg/dL (0.7-1.3); PHOSPHORUS 3.6 mg/dL (2.5-4.9); POTASSIUM 3.4 mmol/L (3.5-5.1)
[2019-09-04 08:00] VITALS: BP 119/85; BP 121/86
--- NOTE | 2019-09-04 10:44 | NUR ---
Followup: extubated on 09/02. ST has assessed and pt able to start po intake. Ate 100% of dinner last evening. TF discontinued. Wt and fluids status improving and more stable in 280s. Wound care following and indicated venous stasis dermatitis much improved. change nutrition status to low risk
[2019-09-04 12:00] VITALS: BP 126/73
[2019-09-04 12:30] VITALS: BP 126/73
[2019-09-04 16:00] VITALS: BP 126/80
[2019-09-04 16:30] VITALS: BP 126/80
--- NOTE | 2019-09-04 20:06 | NUR ---
PT CARE ASSUMED AT 0700. ASSESSMENT CHARTED. MEDICATION CHARTED. PT/OT WORKED WITH PT; HE IS MOVING BETTER NOW THAT HE HAS A WALKER. PT UPSET THIS EVENING WANTED TO LEAVE AMA. PT WAS CONVINCED TO STAY.
[2019-09-05 04:46] LABS: ALBUMIN 2.8 g/dL (3.4-5.0); CALCIUM 8.4 mg/dL (8.5-10.1); CREATININE 1.4 mg/dL (0.7-1.3); PHOSPHORUS 3.9 mg/dL (2.5-4.9); POTASSIUM 3.7 mmol/L (3.5-5.1)
[2019-09-05 05:45] VITALS: BP 110/73
--- NOTE | 2019-09-05 07:45 | NUR ---
ASSESSMENTS CHARTED, MEDS GIVEN CHARTED. PATIENT AND FAMILY WERE UPSET AT THE START OF THE SHIFT FROM LACK OF CARES DURING DAY SHIFT. SPOKE WITH BOTH PATIENT AND DAUGHTER REASSURING THEM BOTH OF THE CARE THEY WILL RECEIVE DURING MANAGER BATTERY. PATIENT SPENT EVENING IN THE RECLINER UNTIL BEDTIME. SLEPT WELL. PATIENT TRIED SEVERAL TIME TO HAVE A BOWEL MOVEMENT WITH NO SUCCESS. FALL PRECAUTIONS IN PLACE DURING SHIFT. DENIED PAIN.
[2019-09-05 08:00] VITALS: BP 116/68
[2019-09-05 12:21] VITALS: BP 123/61
--- NOTE | 2019-09-05 15:48 | NUR ---
ASSUMED CARE AT SHIFT CHANGE, ALERT AND ORIENTED X4, VSS AND AFEBRILE. AFLUTTER ON THE MONITOR, AND MEDICATED ORDERED. LEWIS DISCONTINUED AND VOIDED 150 CC OF DARK MIGUE AND CLOUDY URINE. ASSESSMENT DOCUMENTED AND WILL CONTINUE WITH POC.
[2019-09-05 16:00] VITALS: BP 132/86
[2019-09-05 19:53] VITALS: BP 120/66
--- NOTE | 2019-09-06 03:44 | NUR ---
PT TRANSFERRING TO BEDSIDE COMMODE WITH ASSIST OF ONE AND IS TOLERATING FAIR. DENIES PAIN. RESTING COMFORTABLY. NO NEEDS VOICED. CALL LIGHT WITHIN REACH. FREQUENT OBSERVATION.
[2019-09-06 04:52] VITALS: BP 161/95
[2019-09-06 07:00] LABS: ALBUMIN 2.7 g/dL (3.4-5.0); CALCIUM 8.3 mg/dL (8.5-10.1); CREATININE 1.3 mg/dL (0.7-1.3); PHOSPHORUS 2.9 mg/dL (2.5-4.9); POTASSIUM 3.8 mmol/L (3.5-5.1)
[2019-09-06 08:31] VITALS: BP 131/89
[2019-09-06 11:58] VITALS: BP 143/73
[2019-09-06 15:59] VITALS: BP 137/86
--- NOTE | 2019-09-06 17:08 | NUR ---
ASSESSMENT DOCUMENTED, VSS, CARDIAC RHYTHM BACK TO NSR. PATIENT UP WITH WALKER IN THE ROOM, AND TOLERATING ACTIVITIES WELL. O2 AT 2L AND SATTING ABOVE 92%. PROGRESSING TOWARDS GOALS AND WILL CONTINUE TO MONITOR.
[2019-09-06 19:48] VITALS: BP 177/95
[2019-09-06 22:46] VITALS: BP 158/100
--- NOTE | 2019-09-06 23:38 | NUR ---
ASSUMED CARE OF PT AT 1900HRS. PT AOX4 AND LETS NEEDS BE KNOWN. ASSESSMENT CHARTED. PT HAD ELEVATED BP AND PRN GIVEN. REPORT GIVEN TO BAKARI POOLE AT 2330HRS.
--- NOTE | 2019-09-07 03:10 | NUR ---
TOOK OVER CARE OF PATIENT AT 2330. ASSESSMENT CHARTED. MEDS CHARTED GIVEN. PATIENT SITTING ON SIDE OF BED WAITING FOR RT TO DELIVER A TREATMENT. PATIENT STATED HE IS NERVOUS TO GO HOME SINCE HE CAN BARELY MAKE IT TO THE INSUITE RESTROOM HERE. HAS FAMILY LIVING WITH HIM AND HOME HEALTH WILL BE STARTED. DENIED PAIN. FALL PRECAUTIONS IN PLACE DURING SHIFT.
[2019-09-07 04:16] LABS: CALCIUM 8.4 mg/dL (8.5-10.1); CREATININE 1.2 mg/dL (0.7-1.3); MAGNESIUM 1.8 mg/dL (1.8-2.4); POTASSIUM 3.7 mmol/L (3.5-5.1); TOTAL BILIRUBIN 0.9 mg/dL (0.2-1.0); TOTAL PROTEIN 6.7 g/dL (6.4-8.2)
[2019-09-07 04:24] VITALS: BP 119/63
[2019-09-07 04:35] LABS: ABSOLUTE NEUTROPHILS 7.7 thou/uL (1.4-8.2); BASOPHILS 0.4 % (0.0-2.0); EOSINOPHILS 1.1 % (0.0-3.0); HEMATOCRIT 41.5 % (42.0-52.0); HEMOGLOBIN 13.5 gm/dL (14.0-18.0); MCHC 32.7 g/dL (28.0-37.0); MCV 94.9 fL (80.0-100.0); MONOCYTES 4.6 % (1.0-8.0); PLATELET COUNT 110 thou/uL (150-400); POLYS 77.9 % (36.0-66.0); RBC 4.37 mil/uL (4.50-6.00); RDW 14.3 % (10.5-14.5); WBC 9.9 thou/uL (4.0-11.0)
[2019-09-07 05:25] VITALS: BP 148/78
--- NOTE | 2019-09-07 05:51 | NUR ---
PATIENT WAS FOUND DOWN ON FLOOR BY VIRGILIO TORRES. PATIENT WAS ALERT. PATIENTS RIGHT ARM AND SHOULDER ARE CAUSING PAIN 09/20. LAMAR MOTA NP WAS NOTIFIED, ORDERS RECEIVED. FAMILY NOTIFIED.
[2019-09-07] MEDS ORDERED: PACERONE 200 M200 M1 PO (07:34)
[2019-09-07 08:00] VITALS: BP 150/77
--- NOTE | 2019-09-07 11:56 | NUR ---
PER PATIENT'S NURSE, PATIENT IS AGREEABLE FOR ACUTE REHAB STAY. COOLER MAN CONFIRMED WITH [facility] THAT ACUTE REHAB IS IN NETWORK FOR PATIENT'S INSURANCE PLAN. PATIENT'S INSURANCE CONTACTED AND AUTHORIZATION REQUESTED THIS DATE. WILL AWAIT RESPONSE. THANK YOU FOR THIS REFERRAL.
--- NOTE | 2019-09-07 14:50 | NUR ---
Case discussed with the care team. [facility] acute rehab can accept the pt and nursing reports he is agreeable after his fall this morning. [facility] to check benefits with ins and submit for auth. Dc to rehab later today or tomorrow pending ins approval.
--- NOTE | 2019-09-07 17:39 | NUR ---
PT CARE ASSUMED APPROX 0700. ASSESSMENTS CHARTED. PT DENIES PAIN AND SOA. VSS. PT UP WITH MOD ASSIST AND USE AND GAITBELT/WALKER. SPOUSE AT BEDSIDE MOST SHIFT. PT RE-EDUCATED ON RISK VS BENEFITS OF REHAB. PT AGREEABLE TO REHAB AT THIS TIME. PT DENIES AND SPOUSE DENY QUESTIONS OR CONCERNS REGARDING POC. PT HAD SHOWER WITHOUT ISSUE TODAY. NO DISTRESS NOTED.
[2019-09-07 20:38] VITALS: BP 165/107
[2019-09-08 05:42] VITALS: BP 131/80
[2019-09-08 06:05] LABS: ABSOLUTE NEUTROPHILS 7.6 thou/uL (1.4-8.2); BASOPHILS 0.2 % (0.0-2.0); EOSINOPHILS 1.3 % (0.0-3.0); HEMATOCRIT 42.5 % (42.0-52.0); HEMOGLOBIN 13.7 gm/dL (14.0-18.0); LYMPHOCYTES 15.8 % (24.0-44.0); MCH 30.6 pg (26.0-34.0); MCHC 32.3 g/dL (28.0-37.0); MCV 94.7 fL (80.0-100.0); MONOCYTES 3.6 % (1.0-8.0); PLATELET COUNT 138 thou/uL (150-400); POLYS 79.1 % (36.0-66.0); RBC 4.48 mil/uL (4.50-6.00); RDW 14.3 % (10.5-14.5); WBC 9.6 thou/uL (4.0-11.0)
[2019-09-08 07:04] LABS: ALBUMIN 2.9 g/dL (3.4-5.0); CALCIUM 8.1 mg/dL (8.5-10.1); CREATININE 1.3 mg/dL (0.7-1.3); MAGNESIUM 1.7 mg/dL (1.8-2.4); PHOSPHORUS 3.7 mg/dL (2.5-4.9); TOTAL BILIRUBIN 0.8 mg/dL (0.2-1.0); TOTAL PROTEIN 6.8 g/dL (6.4-8.2)
[2019-09-08 07:28] VITALS: BP 130/73
--- NOTE | 2019-09-08 07:45 | NUR ---
ASSESSMENTS CHARTED, MEDS CHARTED GIVEN. PATIENT RESTING IN ROOM DURING SHIFT. PROUD THAT HE WALKED THREE TIMES DURING THE DAY. WAS SCHEDULED TO GO TO [address] [place] [address] YESTERDAY BUT DID NOT GET MOVED DURING THE DAY. PLAN IS TO GO UP TODAY. TRANSFER ORDERS ARE ON THE CHART. FALL PRECAUTIONS IN PLACE DURING SHIFT. DENIED PAIN.
--- NOTE | 2019-09-08 10:43 | NUR ---
ASSUMED CARE OF PT AT SHIFT CHANGE, HE IS A&0X, ANXIOUS. HOARSE VOICE, LEFT FOR CXR, STATES HE KNOWS HIS INSURANCE COMPANY WILL NOT APPROVE [facility] REHAB, ENCOURAGED HIM TO AWAIT THEIR ANSWER THEY ARE EXCELLENT IN GIVING ATTENTION AND WORKING WITH STRENGTHENING. GAVE PRN XANAX. PT STATES HE BECOMES MORE PARANOID THE LONGER HE IS IN ONE PLACE. WILL CONTINUE TO MONITOR AND ENCOURAGE. SEE SEPARATE INTERVENTIONS FOR ASSESSMENTS. ENCOURAGED PT TO USE CALL LIGHT FOR ANY NEEDS
[2019-09-08 11:28] VITALS: BP 125/75
--- NOTE | 2019-09-08 13:48 | NUR ---
RECEIVED CALL FROM ROGER AT [facility]. Pt WAS DENIED ACUTE REHAB THEY BELIEVE Pt CAN GET SERVICES AT LOWER LEVEL OF CARE. PEER TO PEER CAN BE COMPLETED AT [phone] WITH DOCTOR'S NAME, PHONE NUMBER, AND TIME AVAILBLE. PEER TO PEER INFORMATION WAS GIVEN TO DR. COLON. SPOKE WITH SW REGARDING THIS UDPATE. THANK YOU FOR THIS REFERRAL.
--- NOTE | 2019-09-08 16:30 | NUR ---
5n submitted for auth and denied. Dr Witt did peer to peer with patient and denied. Discussed with patient and dtr. [facility] skilled list for patient to review. Interest in [facility] however the facility has covid. patient reviewing [facility] list
--- NOTE | 2019-09-08 16:33 | NUR ---
RECEIVED CALL FROM ROGER AT [facility]. DR. COLON COMPLETED PEER TO PEER. PER ROGER, PEER TO PEER WAS DONE WITH ANALYTICS ARCHITECT AND DENIAL FOR ACUTE REHAB WAS STILL UPHELD. Pt HAS BEEN DENIED ACUTE REHAB. CASE MGMT UDPATED.
[2019-09-08 16:54] VITALS: BP 145/87
--- NOTE | 2019-09-08 17:22 | NUR ---
PT NOW STATES HE WEARS CPAP AT NIGHT, CALLED RT AND THEY SAID DR. OSORIO WAS SUPPOSED TO PUT IN ORDERS OVER THE WEEKEND. CALLED DR. PUENTE HE'S PREMIUM CARD CANCELLATION CLERK TO ASK FOR AN ORDER FOR PT.
[2019-09-08 19:47] VITALS: BP 124/85; BP 150/87
[2019-09-09 04:45] VITALS: BP 152/87
[2019-09-09 05:22] LABS: CALCIUM 8.9 mg/dL (8.5-10.1); CREATININE 1.3 mg/dL (0.7-1.3); MAGNESIUM 1.6 mg/dL (1.8-2.4); PHOSPHORUS 3.4 mg/dL (2.5-4.9); POTASSIUM 4.3 mmol/L (3.5-5.1)
[2019-09-09 06:04] LABS: HEMATOCRIT 43.3 % (42.0-52.0); HEMOGLOBIN 13.9 gm/dL (14.0-18.0); MCH 30.8 pg (26.0-34.0); MCHC 32.2 g/dL (28.0-37.0); MCV 95.6 fL (80.0-100.0); RBC 4.52 mil/uL (4.50-6.00); RDW 13.9 % (10.5-14.5)
--- NOTE | 2019-09-09 07:30 | NUR ---
ASSESSMENTS CHARTED, MEDS CHARTED GIVEN. PATIENT REQUESTING CPAP MACHINE FOR TONIGHT. TALKED TO DR PUENTE WHO STATED HE DID NOT HAVE AN ORDER FOR CPAP AND WOULD NOT BE ABLE TO HAVE ONE WHEN HE WENT HOME. I TALKED TO THE PATIENT AND HE SAID HE HAS A SLEEP STUDY SCHEDULED FOR THE AND WANTED TO TRY IT OUT. IT HAD 4 LITERS BLED IN. SR WITH BBB ON TELEMETRY. PLAN OF CARE IS TO GO HOME TODAY WITH HOME HEALTH. FALL PRECAUTIONS IN PLACE. DENIED PAIN.
[2019-09-09 07:43] VITALS: BP 135/85
[2019-09-09] MEDS ORDERED: PREDNISONE 20 M20 M1 PO (08:07)
[2019-09-09 09:19] VITALS: BP 135/85
[2019-09-09 10:35] VITALS: BP 135/85
--- NOTE | 2019-09-09 12:00 | NUR ---
08:00 PT. ALERT AND "READY TO GO HOME". EXPLAINED WE HAD TO GET HIS HOME HEALTH SET UP TODAY FOR HIS WOUND CARE, ETC. REVIEWED HIS STEROID TAPERING PLAN WITH HIM AND HIS IN ROOM. PT. AGREEABLE TO SUCH AND SAID HE WILL SET UP HOME HEALTH SCHEDULE WHEN HE "GETS HOME". IV SITE DISCOUNTINUED, NO HEMATOMA BUT HEAVY BLEEDING SO LV WRAPPED APPLIED POST REMOVAL FOR PRESSURE DRESSING. DENIES ANY SOB, DENIES ANY CHEST PAIN AT THIS TIME. DISCUSSED WEARING HIS CPAP AT NIGHT AND HIS OXYGEN 3 LI AT HOME PRESCRIBED. LUNGS SOUND CLEAR BILATERALLY, DIMINISHED IN THE BASES, NO WHEEZING, NO STRIDOR AT ALL. WOUNDS HEALING AND HE SHOWED ME HOW HE PLANS TO COVER THIS CARE.
--- NOTE | 2019-09-09 12:05 | NUR ---
DISCHARGED AT THIS TIME HOME HEALTH TO FOLLOW UP PER THEIR FACILITY COMMENTS. IV REMOVED. AT BEDSIDE ALL TEACH AND TAIN WITH HER PRESENT AND THEY BOTH VERBALIZED UNDERSTANDING OF HIS CARE FORWARD. NO CP, NO SOB AND AMBULATES WITH WALKER VERY WELL.
--- NOTE | 2019-09-09 16:24 | NUR ---
patient dc home. Faxed referral of HH to [facility] at patients request. Mayo in intake in [facility] reports they need to check insurance benefit. Mayo returned call and patient has already left hospital. He reports patient was a walk-in patient at [facility], they suggested admit to hospital but he refused. He has been noncompliant but willing for him to make an apt and become established. Mayo checking with Dr Hawkins office to determine if ever seen in the office. Mayo is calling dtr to alert cannot see patient without following phys.
== END 2019-09-09 12:39 | disposition home health service (06) | DRG 291 ==
LOC: ER 21:21 → 2N 23:04 → ICU 23:04 → EROBS 23:04 → 3W 08-14 01:04 → 2N 08-15 19:42 → ICU 08-18 09:08 → 2N 09-03 15:31
PROVIDERS: Emergency Medicine; Hospitalist; Internal Medicine; Internal Medicine Cardiovascular Disease; Internal Medicine Nephrology; Internal Medicine Pulmonary Disease; Nurse Practitioner; Nurse Practitioner Adult Health; Nurse Practitioner Family; Pediatrics; ADMIT Internal Medicine; ATTEND Internal Medicine
DX: I11.0 Hypertensive heart disease with heart failure (principal); J96.21 Acute and chronic respiratory failure with hypoxia; J96.22 Acute and chronic respiratory failure with hypercapnia; J18.9 Pneumonia, unspecified organism; G92 Toxic encephalopathy; N17.0 Acute kidney failure with tubular necrosis; E43 Unspecified severe protein-calorie malnutrition; K56.7 Ileus, unspecified; I48.92 Unspecified atrial flutter; J44.1 Chronic obstructive pulmonary disease with (acute) exacerbation; G72.81 Critical illness myopathy; Z68.41 Body mass index [BMI] 40.0-44.9, adult; I50.43 Acute on chronic combined systolic (congestive) and diastolic (congestive) heart failure; E10.9 Type 1 diabetes mellitus without complications; I16.0 Hypertensive urgency; E78.00 Pure hypercholesterolemia, unspecified; I87.8 Other specified disorders of veins; E66.01 Morbid (severe) obesity due to excess calories; I48.0 Paroxysmal atrial fibrillation; F17.210 Nicotine dependence, cigarettes, uncomplicated; E87.5 Hyperkalemia; G47.33 Obstructive sleep apnea (adult) (pediatric); I27.20 Pulmonary hypertension, unspecified; Z20.828 Contact with and (suspected) exposure to other viral communicable diseases; Z86.73 Personal history of transient ischemic attack (TIA), and cerebral infarction without residual deficits; Z88.8 Allergy status to other drugs, medicaments and biological substances; Z71.6 Tobacco abuse counseling; Z91.19 Patient's noncompliance with other medical treatment and regimen
CPT/HCPCS: 10078; 10081; 10879; 27000; 57160

== ENCOUNTER 2019-12-31 06:31 | Inpatient (IN) | payer OTHER ==
[~2019-12-31] VITALS: Ht 177.8 cm; Wt 147.1 kg
[2019-12-31] VITALS (11 sets, daily range): BP systolic 102–150; BP diastolic 51–88
[~2019-12-31 06:31] MED LIST changes: +ABILIFY 5 MG TAB5 MG PO; +ASA81BEC PO; +PACERONE 200 M200 M1 PO; +PREDNISONE 20 M20 M1 PO
--- NOTE | 2019-12-31 07:29 | EKG ---
[facility] [place] [address] [place] [address] ELECTROCARDIOGRAM REPORT Name: JD FRANCISCOMeek Hernandez Room #: [facility]#: [id number] Admission: 12/31/19 Attend Phys: Yvan Bolden MD, Discharge: Date of : 62 Report #: [id number] THIS REPORT FOR: cc: LALY GLORIA - Family physician unknown Kale Centeno MD [facility] THIS REPORT FOR: //name// [facility] Test Date: 2019-12-31 Test Time: 07:13:16 Pat Name: GURWINDER FRANCISCO Department: Room: Gender: Courier Driver: [facility] : 1960 Requested By: Yvan Bolden Order Number: [id number] MD: Kale Centeno Measurements Intervals Dora Rate: 75 P: 65 IN: 155 QRS: 43 QRSD: 104 T: 51 QT: 412 QTc: 461 Interpretive Statements Sinus rhythm Left atrial enlargement Low voltage, precordial leads RSR' in V1 or V2, probably normal variant Baseline wander in lead(s) V4 Compared to ECG 08/18/2019 15:44:39 Atrial abnormality now present Low QRS voltage now present Atrial fibrillation no longer present Electronically Signed On 12-31-2019 7:29:22 PLANT TECH by Kale Centeno [email or web address] <ELECTRONICALLY SIGNED> By: Kale Centeno MD, [facility] 12/31/19728 2 2 Kale Centeno MD, [facility] /EPI
[2019-12-31] MEDS ORDERED: MAGNESIUM250 M1 PO (07:44)
[2019-12-31] MEDS ORDERED: DEMADEX20 MG PO (07:46)
[2019-12-31] MEDS ORDERED: SPIRONOLACT/HCT1 TA1 PO (07:47)
[2019-12-31 07:52] LABS: HEMATOCRIT 43.1 % (42.0-52.0); MCH 30.4 pg (26.0-34.0); MCHC 32.4 g/dL (28.0-37.0); MCV 93.9 fL (80.0-100.0); RBC 4.59 mil/uL (4.50-6.00); RDW 15.4 % (10.5-14.5); WBC 9.1 thou/uL (4.0-11.0)
[2019-12-31 08:46] LABS: CALCIUM 9.1 mg/dL (8.5-10.1); CREATININE 1.3 mg/dL (0.7-1.3)
[2019-12-31 08:47] LABS: POTASSIUM 5.1 mmol/L (3.5-5.1)
[2020-01-01 04:51] VITALS: BP 131/68
[2020-01-01 05:34] LABS: HEMATOCRIT 41.5 % (42.0-52.0); HEMOGLOBIN 13.3 gm/dL (14.0-18.0); MCH 30.7 pg (26.0-34.0); MCV 95.9 fL (80.0-100.0); RBC 4.33 mil/uL (4.50-6.00); RDW 14.5 % (10.5-14.5); WBC 9.1 thou/uL (4.0-11.0)
[2020-01-01 06:10] LABS: ALBUMIN 3.4 g/dL (3.4-5.0); CALCIUM 8.6 mg/dL (8.5-10.1); CREATININE 1.3 mg/dL (0.7-1.3); POTASSIUM 4.2 mmol/L (3.5-5.1); TOTAL BILIRUBIN 0.4 mg/dL (0.2-1.0); TOTAL PROTEIN 6.8 g/dL (6.4-8.2)
--- NOTE | 2020-01-01 07:35 | EKG ---
[facility] [place] [address] ELECTROCARDIOGRAM REPORT Name: GURWINDER FRANCISCO Room #: 219-P ADM [facility] M.R.#: [id number] Admission: 12/31/19 Attend Phys: Yvan Bolden MD, Discharge: Date of : 62 Report #: [id number] THIS REPORT FOR: cc: LALY GLORIA - Family physician unknown Mario Lenz MD [facility] ~ THIS REPORT FOR: //name// [facility] Test Date: 2020-01-01 Test Time: 07:16:33 Pat Name: GURWINDER FRANCISCO Department: Room: 219 P Gender: M Dog Handler: BRENT : 1960 Requested By: Bisi Arroyo Order Number: [id number] MD: Mario Lenz Measurements Intervals [place] Rate: 82 P: 40 MA: 151 QRS: 24 QRSD: 97 T: 63 QT: 390 QTc: 456 Interpretive Statements Sinus rhythm Right ventricular conduction delay Poor R wave progression Compared to ECG 12/31/2019 07:13:16 No significant change was found Electronically Signed On 01-01-2020 7:34:55 TELETYPE ADJUSTER by Mario Lenz [email or web address] <ELECTRONICALLY SIGNED> By: Mario Lenz MD, [facility] 01/01/20 0734 5 5 Mario Lenz MD, [facility] /EPI
[2020-01-01 08:00] VITALS: BP 119/47
[2020-01-01 12:00] VITALS: BP 117/72
[2020-01-01] MEDS ORDERED: DEMADEX20 MG PO (15:14)
--- NOTE | 2020-01-01 15:17 | H ---
[facility] [place] [place] [address] HISTORY AND PHYSICAL Name: GURWINDER FRANCISCO Room #: 219-P ADM IN M.R.#: [id number] Admission: 12/31/19 Attend Phys: Yvan Bolden MD, Discharge: Date of : 62 Report #: [id number] THIS REPORT FOR: cc: LALY GLORIA - Family physician unknown Yvan Bolden MD [facility] ~ CC: LALY ZENG unknown Yvan Bolden DATE OF SERVICE: 12/31/2019 HISTORY OF PRESENT ILLNESS: The patient is a 59-year-old male. Initially was planning right and left heart catheterization, which I did perform this morning, but he has significant volume overload with a pulmonary capillary wedge pressure of 30. Has a history of pulmonary hypertension, heart failure, predominantly due to metabolic/diastolic heart failure due to significant obesity and chronic dyspnea. Had a long hospitalization earlier this year at [facility] for metabolic encephalopathy where he had intubated for 2 weeks. He has been sent home on anticoagulation and diuresis. Paroxysmal atrial fibrillation, but no recurrence of this currently. He is in sinus rhythm today with PACs, but has noted some progressive dyspnea and shortness of breath. I would question compliance here. CURRENT MEDICATIONS: Amiodarone 200, Abilify, aspirin, Lipitor 10, Coreg 25 b.i.d., gabapentin, lisinopril 20, magnesium, melatonin. He is on Xarelto. LABORATORY WORK: His creatinine is 1.3. Hemoglobin is 14, hematocrit 43. PAST MEDICAL HISTORY: Positive for the diastolic dysfunction, heart failure, diabetes, morbid obesity, COPD, paroxysmal atrial fibrillation, hypertension, DJD. ALLERGIES: No known drug allergies. SOCIAL HISTORY: Prior tobacco user. No alcohol use. No drug use. . FAMILY HISTORY: Negative for premature coronary artery disease. PHYSICAL EXAMINATION: GENERAL: He is alert. He is mildly dyspneic at baseline. VITAL SIGNS: Blood pressure is 160/88, pulse is 90s and regular. HEENT: Eyes reveal xanthelasmas. Pharynx is clear. NECK: Shows some evidence of trace to mild JVD. LUNGS: Clear anteriorly, diminished in the bases with bilateral crackles. [facility] [address] [place] [address] HISTORY AND PHYSICAL Name: GURWINDER FRANCISCO Room #: 219-[facility] IN M.R.#: [id number] Admission: 12/31/19 Attend Phys: Yvan Bolden MD, Discharge: Date of : 62 Report #: [id number] CARDIOVASCULAR: Distant heart tones, S1, S2, question of an S4. ABDOMEN: Obese, nontender. EXTREMITIES: Reveal trace to 1+ edema, venous stasis changes. No skin breakdown. I cannot palpate distal pulses. NEUROLOGIC: Intact. MUSCULOSKELETAL: Valgus deformity of the knees. He ambulates slowly. ASSESSMENT: 1. Acute on chronic diastolic heart failure (normal cardiac catheterization with marked elevations in pulmonary pressures, see laborer/grade check data). 2. History of metabolic encephalopathy, resolved. 3. Hypertension. 4. Morbid obesity. 5. Hypercholesterolemia. 6. Chronic kidney disease. 7. Paroxysmal atrial fibrillation. 8. Degenerative joint disease. 9. Severe pulmonary hypertension as described above, currently pulmonary pressure 70/30 in catheterization lab today. RECOMMENDATIONS AND PLAN: Aggressive diuresis. We will advance medications as tolerated here. Obviously, weight loss, salt and fluid restriction are all indicated here. May need further evaluation of social situation here due to compliance issues. Admit to CCU for aggressive diuresis and we will restart anticoagulation DOAC i.e., Xarelto here tonight. Thank you for asking me to assist in the care of this patient. <ELECTRONICALLY SIGNED> By: Yvan Bolden MD, FACC 01/01/20 1517 1059 1148 Yvan Bolden MD, FACC /nt
--- NOTE | 2020-01-01 15:30 | CATHLAB ---
[facility] [place] [address] INVASIVE PROCEDURE REPORT Name: GURWINDER FRANCISCO Room #: 219-P ADM IN M.R.#: [id number] Admission: 12/31/19 Attend Phys: Yvan Bolden MD, Discharge: Date of : 62 Report #: [id number] THIS REPORT FOR: cc: LALY GLORIA [facility] - Family physician unknown Yvan Bolden MD [facility] ~ APPROVED REPORT Study performed: 12/31/2019 07:38:23 Patient Details Patient Status: Out-Patient Room #: The patient is a 59 year-old male Event Personnel Yvan Bolden Children'S Nursery Assistant, Charli Vallecillo RN RN, Yuni Mustafa Monitor, Tami Murphy RTR, CUSTOM SHOEMAKER Scrub Procedures Performed Art Access - R femoral artery* Adrián Access - R femoral vein Right and Left Heart Cath w/or w/o Coronarie [id number] [facility] Hemostasis w/ Mynx 01731 Initial Mod Sed Same Phys/QHP Gr5y 182547 62470 Mod Sed Same Phys/QHP Ea 766671 Indication Chest pain Procedure Narrative The Right Groin^ was infiltrated with 1% Lidocaine subcutaneous anesthesia. A PINNACLE 6FR Sheath #[id number] sheath was inserted into the RFA^. Coronary angiography was performed using coronary diagnostic catheters. The right coronary system was accessed and visualized with a JR4 catheter. The left coronary system was accessed and visualized with a JL4 catheter. The left ventricle was accessed and visualized with a STR PIG catheter. Left ventriculogram was performed in 30 degree projection. The patient tolerated the procedure well and there were no complications associated with the procedure. There was no hematoma. HELD MANUAL PRESSURE FOR VENOUS Intraoperative Conscious Sedation Sedation start time: 1026 Case end Time: 1110 Fentanyl 50 mcg Versed 0.5 mg [facility] [employer] [place] [address] INVASIVE PROCEDURE REPORT Name: GURWINDER FRANCISCO Room #: 219-P [facility] IN ..#: [id number] Admission: 12/31/19 Attend Phys: Yvan Bolden, Discharge: Date of : 62 Report #: [id number] Fluoro Time: 2.50 minutes Dose: DAP 11396.00 cGycm2 1205 mGy Contrast Type and Amount: Visipaque 104 ml Hemodynamics The right atrial mean pressure is 26 mmHg. The right ventricular pressure is 61/22 mmHg. The pulmonary artery pressure is 59/29 mmHg with a mean of 44 mmHg. The mean pulmonary capillary wedge pressure is 38 mmHg. The aortic pressure is 145/88 mmHg with a mean of 115 mmHg. The left ventricular pressure is 155/18 mmHg with a mean of mmHg. The left ventricular end diastolic pressure is 36 mmHg. The cardiac output using thermo method is 5.35 L/min. The cardiac index using thermo method is 2.09 L/min/m2. Conclusion #1. Normal left ventricular size and hyperdynamic LV function EF 70% #2 a tortuous abdominal aorta no evidence of aneurysm brisk flow. #3 large left main free of disease giving rise to LAD and circumflex. #4 LAD diffuse irregularities no occlusive disease this wraps the apex. #5 circumflex OM nondominant with minimal irregularity widely patent #5 dominant right coronary artery with mild mid vessel disease 30 to 40% otherwise widely patent #6 successful right heart catheterization with cardiac output by thermodilution. Market volume overload is noted. Probable diastolic dysfunction Recommendations and plan: Continue aggressive risk factor modification. Patient needs aggressive diuresis with pulmonary capillary wedge pressure of 30 mmHg pulmonary pressure 70/30. Will admit for aggressive diuresis. Patient has marginal oxygenation currently. <ELECTRONICALLY SIGNED> By: Yvan Bolden MD, FACC 01/01/20 1530 29 29 Yvan Bolden MD, FACC /INF
[2020-01-01 17:15] VITALS: BP 128/72
[2020-01-01 19:30] VITALS: BP 114/71
[2020-01-02 01:34] VITALS: BP 134/42
[2020-01-02 03:02] VITALS: BP 125/62
[2020-01-02 03:11] VITALS: BP 125/62
[2020-01-02 05:01] LABS: CALCIUM 8.6 mg/dL (8.5-10.1); CREATININE 1.4 mg/dL (0.7-1.3)
[2020-01-02 08:10] VITALS: BP 139/86
[2020-01-02 13:05] VITALS: BP 139/86
== END 2020-01-02 14:27 | disposition home or self-care (01) | DRG 286 ==
LOC: CATH 06:31 → 2N 12:05 → CATH 12:12 → 2N 01-02 14:27
PROVIDERS: Nurse Practitioner Adult Health; ADMIT Internal Medicine Cardiovascular Disease; ATTEND Internal Medicine Cardiovascular Disease
PROC: B215YZZ Fluoroscopy of Left Heart using Other Contrast (ICD-10-PCS; principal; 2019-12-31)
PROC: 4A023N8 Measurement of Cardiac Sampling and Pressure, Bilateral, Percutaneous Approach (ICD-10-PCS; principal; 2019-12-31)
PROC: B211YZZ Fluoroscopy of Multiple Coronary Arteries using Other Contrast (ICD-10-PCS; principal; 2019-12-31)
DX: I13.0 Hypertensive heart and chronic kidney disease with heart failure and stage 1 through stage 4 chronic kidney disease, or unspecified chronic kidney disease (principal); I50.33 Acute on chronic diastolic (congestive) heart failure; J96.20 Acute and chronic respiratory failure, unspecified whether with hypoxia or hypercapnia; Z68.42 Body mass index [BMI] 45.0-49.9, adult; E66.01 Morbid (severe) obesity due to excess calories; J44.9 Chronic obstructive pulmonary disease, unspecified; I48.0 Paroxysmal atrial fibrillation; M19.90 Unspecified osteoarthritis, unspecified site; E11.22 Type 2 diabetes mellitus with diabetic chronic kidney disease; E78.00 Pure hypercholesterolemia, unspecified; N18.9 Chronic kidney disease, unspecified; I27.20 Pulmonary hypertension, unspecified; Z79.82 Long term (current) use of aspirin; Z79.899 Other long term (current) drug therapy; Z99.81 Dependence on supplemental oxygen
CPT/HCPCS: 10081

== ENCOUNTER 2020-01-03 01:35 | Emergency (ER) | payer OTHER ==
[~2020-01-03] VITALS: Ht 167.6 cm; Wt 104.3 kg
[~2020-01-03 01:35] MED LIST changes: +DEMADEX20 MG PO; +MAGNESIUM250 M1 PO; +SPIRONOLACT/HCT1 TA1 PO
[2020-01-03 02:23] LABS: ABSOLUTE NEUTROPHILS 6.1 thou/uL (1.4-8.2); BASOPHILS 0.5 % (0.0-2.0); EOSINOPHILS 2.3 % (0.0-3.0); HEMATOCRIT 40.4 % (42.0-52.0); HEMOGLOBIN 12.9 gm/dL (14.0-18.0); LYMPHOCYTES 24.7 % (24.0-44.0); MCH 30.4 pg (26.0-34.0); MCV 95.2 fL (80.0-100.0); MONOCYTES 9.6 % (1.0-8.0); PLATELET COUNT 187 thou/uL (150-400); POLYS 62.9 % (36.0-66.0); RBC 4.24 mil/uL (4.50-6.00); RDW 14.2 % (10.5-14.5); WBC 9.7 thou/uL (4.0-11.0)
[2020-01-03 02:26] LABS: ANION GAP 3 mmol/L (7-16); BUN 25 mg/dL (7-18); CALCIUM 8.9 mg/dL (8.5-10.1); CHLORIDE 100 mmol/L (98-107); CO2 38 mmol/L (21-32); CREATININE 1.4 mg/dL (0.7-1.3); GLUCOSE 176 mg/dL (74-106); POTASSIUM 3.8 mmol/L (3.5-5.1); SODIUM 141 mmol/L (136-145)
[2020-01-03 02:36] LABS: TROPONIN-I <0.06 ng/mL (<0.06)
[2020-01-03 06:03] VITALS: BP 130/58
--- NOTE | 2020-01-04 07:13 | EKG ---
[facility] [place] [place] [address] ELECTROCARDIOGRAM REPORT Name: MARYAMGURWINDER Hernandez [id number] Admission: 01/03/20 Attend Phys: Discharge: 01/03/20 Date of : 62 Report #: [id number] THIS REPORT FOR: cc: [facility] - Clinic physician unknown [facility] - Clinic physician unknown Kale Centeno MD [facility] THIS REPORT FOR: //name// [facility] ED Test Date: 2020-01-03 Test Time: 01:38:24 Pat Name: GURWINDER FRANCISCO Department: Room: Gender: Machine Sorter: : 1960 Requested By: Matthew Olmedo Order Number: [id number] MD: Kale Centeno Measurements Intervals Glenn Rate: 88 P: 72 RI: 162 QRS: 59 QRSD: 102 T: 79 QT: 377 QTc: 457 Interpretive Statements Sinus rhythm Atrial premature complex Left atrial enlargement Baseline wander in lead(s) V1 Compared to ECG 01/01/2020 07:16:33 Atrial premature complex(es) now present Atrial abnormality now present Poor R-wave progression no longer present Electronically Signed On 01-04-2020 7:13:06 MECHANICAL SPREADER OPERATOR by Kale Centeno [email or web address] <ELECTRONICALLY SIGNED> By: Kale Centeno MD, FACC 01/04/20 0713 7 7 Kale Centeno MD, FACC /EPI
== END 2020-01-03 06:16 | disposition home or self-care (01) ==
LOC: ER 01:35
PROVIDERS: Emergency Medicine
DX: R07.89 Other chest pain (principal); I11.0 Hypertensive heart disease with heart failure; I50.9 Heart failure, unspecified; E11.9 Type 2 diabetes mellitus without complications; E78.5 Hyperlipidemia, unspecified; J44.9 Chronic obstructive pulmonary disease, unspecified; I48.91 Unspecified atrial fibrillation; F17.210 Nicotine dependence, cigarettes, uncomplicated; Z79.82 Long term (current) use of aspirin; Z79.899 Other long term (current) drug therapy; Z88.8 Allergy status to other drugs, medicaments and biological substances

== ENCOUNTER 2020-03-26 16:55 | Inpatient (IN) | payer OTHER ==
[~2020-03-26] VITALS: Ht 167.6 cm; Wt 154.2 kg
[2020-03-26 16:56] VITALS: BP 92/49
[2020-03-26] MEDS ORDERED: AMONIUM LACTATE (17:32)
[2020-03-26 18:13] LABS: ABSOLUTE NEUTROPHILS 6.3 thou/uL (1.4-8.2); BASOPHILS 0.3 % (0.0-2.0); EOSINOPHILS 2.5 % (0.0-3.0); HEMATOCRIT 45.8 % (42.0-52.0); HEMOGLOBIN 14.9 gm/dL (14.0-18.0); LYMPHOCYTES 29.3 % (24.0-44.0); MCH 31.5 pg (26.0-34.0); MCHC 32.5 g/dL (28.0-37.0); MCV 96.9 fL (80.0-100.0); PLATELET COUNT 197 thou/uL (150-400); POLYS 59.9 % (36.0-66.0); RBC 4.72 mil/uL (4.50-6.00); RDW 15.7 % (10.5-14.5); WBC 10.5 thou/uL (4.0-11.0)
[2020-03-26 18:22] LABS: CALCIUM 9.3 mg/dL (8.5-10.1); CREATININE 3.1 mg/dL (0.7-1.3)
[2020-03-26 18:24] LABS: POTASSIUM 4.4 mmol/L (3.5-5.1)
[2020-03-26 18:27] LABS: ALBUMIN 3.9 g/dL (3.4-5.0); TOTAL BILIRUBIN 0.6 mg/dL (0.2-1.0); TOTAL PROTEIN 7.8 g/dL (6.4-8.2)
[2020-03-26 19:51] VITALS: BP 123/73
[2020-03-26 19:52] VITALS: BP 123/73
--- NOTE | 2020-03-26 19:55 | NUR ---
Called to give report and was told by VIRGILIO Godinez that RN was busy taking report and will call me back
[2020-03-26 20:15] VITALS: BP 155/66
--- NOTE | 2020-03-27 00:25 | NUR ---
PATIENT ARRIVED TO UNIT BY CAR TO ED; ALERT & ORIENTED; AMBULATED TO BED W/O ASSISTANCE AND INCIDENT FREE; VSS; 3 LPM NC @ BASELINE; PT INITIALLY REFUSED AND THEN RECANTED ADMISSION TO UNIT, ACCU CHECKS/INSULIN, AND SIGNING CONSENTS; PT STATED MANY TIMES THAT HE DOES NOT HAVE DM2 ANYMORE AND THAT A DOCTOR STATED HE IS IN REMISSION; PT NOW RESTING QUIETLY; NURSE TO INITIATE POC AND WILL CONTINUE TO MONITOR THROUGHOUT THE NOC.
[2020-03-27 00:30] VITALS: BP 119/61
[2020-03-27 04:00] VITALS: BP 139/84
[2020-03-27 04:30] LABS: CREATININE 2.8 mg/dL (0.7-1.3); POTASSIUM 3.8 mmol/L (3.5-5.1)
[2020-03-27 07:25] VITALS: BP 110/56
--- NOTE | 2020-03-27 07:34 | EKG ---
[address] [address] ELECTROCARDIOGRAM REPORT Name: GURWINDER FRANCISCO Room #: 211- ADM IN ..#: [id number] Admission: 03/26/20 Attend Phys: Pretty Guerrero MD Discharge: Date of : 62 Report #: [id number] [facility] ED Test Date: 2020-03-26 Test Time: 18:07:54 Pat Name: GURWINDER FRANCISCO Department: Room: 211 Gender: M Youth Corrections Officer: oren : 1960 Requested By: Gonzalez Moore Order Number: [id number] MD: Kale Centeno Measurements Intervals [place] Rate: 84 P: 70 MS: 166 QRS: 57 QRSD: 99 T: 51 QT: 386 QTc: 457 Interpretive Statements Sinus rhythm Prominent P waves, nondiagnostic Baseline wander in lead(s) V2,V3 Compared to ECG 01/03/2020 01:38:24 Atrial premature complex(es) no longer present Atrial abnormality no longer present Electronically Signed On 03-27-2020 7:34:35 SAFETY INVESTIGATOR by Kale Centeno [email or web address] <ELECTRONICALLY SIGNED> By: Kale Centeno MD, FAC 03/27/20 0734 1807 180 Kale Centeno MD, [facility] /EPI
[2020-03-27 10:58] LABS: URINE BILIRUBIN NEGATIVE (Negative); URINE BLOOD NEGATIVE (Negative); URINE CLARITY CLEAR; URINE COLOR YELLOW; URINE GLUCOSE-RANDOM* NEGATIVE (Negative); URINE KETONES NEGATIVE (Negative); URINE LEUKOCYTES NEGATIVE (Negative); URINE NITRITE NEGATIVE (Negative); URINE PROTEIN (DIPSTICK) NEGATIVE (Negative); URINE SPECIFIC GRAVITY 1.015 (1.005-1.035); URINE UROBILINOGEN 0.2 E.U./dl (0.2-1.0)
[2020-03-27 11:04] LABS: PROT/CREAT RATIO 0.1; URINE CREATININE-RANDOM* 87.3 mg/dL; URINE PROTEIN-RANDOM* 12.3 mg/dL (<11.9)
[2020-03-27 11:25] VITALS: BP 98/55
[2020-03-27 15:45] VITALS: BP 97/72
--- NOTE | 2020-03-27 18:50 | NUR ---
ALERT AND ORIENTED, IRRITABLE BUT COOPERATIVE. VITALS STABLE AND HAS DENIED PAIN. STARTED ON CPAP WHILE SLEEPING BUT KEEPS TAKING IT OFF AND REFUSES TO PUT IT BACK ON. OTHERWISE ON 3L WHICH IS BASELINE FOR HIM. SPOUSE AT THE BEDSIDE MOST OF THE DAY AND DR. COLON ROUNDED AND TALKED WITH BOTH AND ANSWERED QNS.
[2020-03-27 20:18] VITALS: BP 120/67
[2020-03-28 04:19] LABS: BASOPHILS 0.4 % (0.0-2.0); EOSINOPHILS 2.3 % (0.0-3.0); HEMATOCRIT 43.2 % (42.0-52.0); LYMPHOCYTES 36.2 % (24.0-44.0); MCH 31.7 pg (26.0-34.0); MCHC 32.5 g/dL (28.0-37.0); MCV 97.7 fL (80.0-100.0); MONOCYTES 7.4 % (1.0-8.0); PLATELET COUNT 172 thou/uL (150-400); POLYS 53.7 % (36.0-66.0); RBC 4.42 mil/uL (4.50-6.00); WBC 9.3 thou/uL (4.0-11.0)
[2020-03-28 04:50] LABS: ALBUMIN 3.5 g/dL (3.4-5.0); CALCIUM 8.7 mg/dL (8.5-10.1); CREATININE 2.4 mg/dL (0.7-1.3); MAGNESIUM 1.8 mg/dL (1.8-2.4); PHOSPHORUS 4.1 mg/dL (2.6-4.7); POTASSIUM 3.8 mmol/L (3.5-5.1); TOTAL BILIRUBIN 0.4 mg/dL (0.2-1.0); URIC ACID* 13.4 mg/dL (3.5-7.2)
[2020-03-28 05:22] VITALS: BP 105/75
--- NOTE | 2020-03-28 06:43 | NUR ---
ASSESSMENTS CHARTED, MEDS CHARTED GIVEN. PATIENT HERE TO GET FLUID OFF HIS BODY. PATIENT HAS HAD FALLS AT HOME, C/O PAIN IN BILATERAL FOOT AND ANKLES. XRAYS TODAY FOR ANKLES AND TIB/FIB. ON LASIX THERAPY, ON OXYGEN. NICOTINE PATCH ON LEFT ARM. PATIENT NON-COMPLIANT WITH BED ALARM AND BEING UP WITH ASSIST. C/O PATCHES CAUSING THE SKIN TO ITCH. ONE TIME ORDER FOR BENADRYLL GIVEN.
[2020-03-28 07:45] VITALS: BP 116/56
[2020-03-28 08:05] VITALS: BP 116/56
[2020-03-28 12:05] VITALS: BP 109/67
--- NOTE | 2020-03-28 15:27 | NUR ---
Pt transferred from CCU at 1230pm; reposrt received from RN Man; transferred to room safely. A+OX4. On O2 at 3lpm via nasal cannula; 7lpm at HS or CPAP. On telemtry; no complains and signs of chest pain, crushing sensation and heaviness. Assisted in ADLs. Vital signs stable. On 2gm Na- tolerating well; no nausea, no vomiting and no abdominal pain noted. On blood sugar monitoring, taken and recorded accordingly, with sliding scale insulin ordered; given as prescribed. On fluid restriction 1700- pt reminded and aware. Falls bundle in place. With SL at L AC. Able to sit out on the chair, on standby assist; walker and gait belt. No complains of pain made during assessment. Continent of bowel and bladder, able to use urinal- output measured and recorded accordingly. To continue monitoring patient.
--- NOTE | 2020-03-28 15:58 | NUR ---
PT CARE ASSUMED AT 0700. ASSESSMENTS CHARTED. MEDICATIONS CHARTED. LAC IV. CPAP, NONCOMPLIANT. O2 3LPM NC. PT TRANSFERRED TO [facility].
[2020-03-28 16:49] VITALS: BP 120/63
[2020-03-28 20:43] VITALS: BP 112/62
--- NOTE | 2020-03-28 23:00 | NUR ---
Received pt. up in the recliner chair. O2 at 3L/NC with O2 sat in the mid 90's. He does get short of breath with exertion. Denies any pain. Voided per urinal then assisted to ambulate to bathroom using his cane to try and have bm. Assisted back to bed. Report given to another RN who took over care of pt.
[2020-03-29 05:31] LABS: CALCIUM 9.7 mg/dL (8.5-10.1); CREATININE 2.4 mg/dL (0.7-1.3); POTASSIUM 3.8 mmol/L (3.5-5.1)
--- NOTE | 2020-03-29 05:46 | NUR ---
Pt's assessment and HS meds were done by the previous RN. See interventions. Pt remains with no changes at this time. Will give hat former meds. Will continue to monitor.
[2020-03-29 06:00] VITALS: BP 113/64
--- NOTE | 2020-03-29 06:15 | NUR ---
Pt called out, complaining of feeling "whoozy". VSS obtianed and was stable on 3l. BG 124. Pt complained of FISHER and pressure on his left big toe. Tylenol given. Pt is sleeping at this time. Oncall YARD JOCKEY notified. No noew orders at this time. Will continue to monitor.
[2020-03-29 07:37] VITALS: BP 117/66
[2020-03-29] MEDS ORDERED: XARELTO15 MG PO (09:39)
[2020-03-29] MEDS ORDERED: DEMADEX20 MG PO (09:39)
[2020-03-29 09:59] VITALS: BP 97/60
[2020-03-29 10:01] VITALS: BP 118/54
[2020-03-29 11:17] VITALS: BP 118/54
[2020-03-29 11:52] VITALS: BP 118/54
--- NOTE | 2020-03-29 14:00 | NUR ---
Assumed pt care at 7am. Assessment completed.vss.Pt in bed for breakfast. Am meds given and well tolerated.Dr Torres and cardiac rehab nurse here,order noted.Pt called his for pickle cutter.Dc summary compile and reviewed with pt and .At 1400,pt dc home in [place] with .
== END 2020-03-29 13:45 | disposition home or self-care (01) | DRG 683 ==
LOC: ER 16:55 → EROBS 18:47 → 2N 18:47 → 4W 03-28 12:15
PROVIDERS: Hospitalist; Internal Medicine; Internal Medicine Nephrology; Nurse Practitioner Family; Physician Assistant; ADMIT Internal Medicine; ATTEND Internal Medicine
PROC: 5A09357 Assistance with Respiratory Ventilation, Less than 24 Consecutive Hours, Continuous Positive Airway Pressure (ICD-10-PCS; principal; 2020-03-27)
PROC: 5A09357 Assistance with Respiratory Ventilation, Less than 24 Consecutive Hours, Continuous Positive Airway Pressure (ICD-10-PCS; 2020-03-28)
PROC: 5A09357 Assistance with Respiratory Ventilation, Less than 24 Consecutive Hours, Continuous Positive Airway Pressure (ICD-10-PCS; 2020-03-29)
DX: N17.9 Acute kidney failure, unspecified (principal); I50.32 Chronic diastolic (congestive) heart failure; Z68.43 Body mass index [BMI] 50.0-59.9, adult; I13.0 Hypertensive heart and chronic kidney disease with heart failure and stage 1 through stage 4 chronic kidney disease, or unspecified chronic kidney disease; E78.5 Hyperlipidemia, unspecified; J44.9 Chronic obstructive pulmonary disease, unspecified; E66.01 Morbid (severe) obesity due to excess calories; F17.210 Nicotine dependence, cigarettes, uncomplicated; G47.33 Obstructive sleep apnea (adult) (pediatric); I27.20 Pulmonary hypertension, unspecified; F20.9 Schizophrenia, unspecified; I48.0 Paroxysmal atrial fibrillation; I25.10 Atherosclerotic heart disease of native coronary artery without angina pectoris; E78.00 Pure hypercholesterolemia, unspecified; E11.22 Type 2 diabetes mellitus with diabetic chronic kidney disease; N18.2 Chronic kidney disease, stage 2 (mild); I95.9 Hypotension, unspecified; M79.671 Pain in right foot; M79.672 Pain in left foot; E86.0 Dehydration; Z88.8 Allergy status to other drugs, medicaments and biological substances; Z86.73 Personal history of transient ischemic attack (TIA), and cerebral infarction without residual deficits; Z20.822 Contact with and (suspected) exposure to COVID-19
CPT/HCPCS: 10045; 10081

== ENCOUNTER → 2020-04-14 | Outpatient (CLI) | payer OTHER ==
[~2020-04-14] MED LIST changes: +AMONIUM LACTATE; +XARELTO15 MG PO
== END ==
LOC: SJCVC 15:58
PROVIDERS: ATTEND Internal Medicine Cardiovascular Disease
DX: R94.31 Abnormal electrocardiogram [ECG] [EKG] (principal); I49.1 Atrial premature depolarization; I25.10 Atherosclerotic heart disease of native coronary artery without angina pectoris; E78.00 Pure hypercholesterolemia, unspecified; I27.20 Pulmonary hypertension, unspecified; I11.0 Hypertensive heart disease with heart failure; I50.30 Unspecified diastolic (congestive) heart failure; I48.0 Paroxysmal atrial fibrillation; R60.9 Edema, unspecified; D68.59 Other primary thrombophilia; J44.9 Chronic obstructive pulmonary disease, unspecified; E11.9 Type 2 diabetes mellitus without complications; F17.200 Nicotine dependence, unspecified, uncomplicated; Z79.82 Long term (current) use of aspirin; Z79.899 Other long term (current) drug therapy

== ENCOUNTER → 2020-06-24 | Outpatient (CLI) | payer OTHER | LOC: CAT 11:12 | PROVIDERS: ATTEND Internal Medicine | DX: Z12.2 Encounter for screening for malignant neoplasm of respiratory organs (principal); Z87.891 Personal history of nicotine dependence ==

== ENCOUNTER 2020-08-06 21:13 | Inpatient (IN) | payer OTHER ==
[~2020-08-06] VITALS: Ht 177.8 cm; Wt 156.3 kg
[2020-08-06 21:20] VITALS: BP 120/63
[2020-08-06 21:39] LABS: ABSOLUTE NEUTROPHILS 6.4 thou/uL (1.4-8.2); BASOPHILS 0.5 % (0.0-2.0); EOSINOPHILS 2.2 % (0.0-3.0); HEMOGLOBIN 14.9 gm/dL (14.0-18.0); MCH 33.5 pg (26.0-34.0); MCHC 33.2 g/dL (28.0-37.0); MCV 100.8 fL (80.0-100.0); MONOCYTES 7.9 % (1.0-8.0); PLATELET COUNT 175 thou/uL (150-400); POLYS 60.4 % (36.0-66.0); RBC 4.46 mil/uL (4.50-6.00); RDW 14.7 % (10.5-14.5); WBC 10.7 thou/uL (4.0-11.0)
[2020-08-06 21:50] LABS: ANION GAP 3 mmol/L (7-16); BUN 25 mg/dL (7-18); CALCIUM 8.6 mg/dL (8.5-10.1); CHLORIDE 102 mmol/L (98-107); CO2 38 mmol/L (21-32); CREATININE 1.5 mg/dL (0.7-1.3); GLUCOSE 100 mg/dL (74-106); POTASSIUM 4.3 mmol/L (3.5-5.1); SODIUM 143 mmol/L (136-145)
[2020-08-06 21:59] LABS: ALBUMIN 3.8 g/dL (3.4-5.0); SGOT 20 U/L (15-37); SGPT 30 U/L (30-65); TOTAL BILIRUBIN 0.4 mg/dL (0.2-1.0); TOTAL PROTEIN 7.7 g/dL (6.4-8.2); TROPONIN-I <0.06 ng/mL (<0.06)
[2020-08-06] MEDS ORDERED: LASIX 40 MG TAB40 MG PO (21:59)
[2020-08-06] MEDS ORDERED: SPIRONOLACTONE25 MG PO (22:00)
[2020-08-06] MEDS ORDERED: MAG OX PO (22:01)
[2020-08-06] MEDS ORDERED: MULTIVITAMIN GUMMY PO (22:01)
[2020-08-06] MEDS ORDERED: HYTRIN 1 MG CAP1 MG PO (22:02)
[2020-08-06] MEDS ORDERED: TORSEMIDE5 MG PO (22:03)
[2020-08-07 00:59] VITALS: BP 106/63
[2020-08-07] MEDS ORDERED: XARELTO20 MG PO (01:01)
[2020-08-07] MEDS ORDERED: LISINOPRIL20 MG PO (01:04)
--- NOTE | 2020-08-07 01:56 | NUR ---
PATIENT IS A NEW ADMISSION TO THE UNIT THIS SHIFT. HE ARRIVED VIA CART FROM THE ER AND WAS ABLE TO AMBULATE TO THE BED WITH ASSISTANCE INCIDENT FREE. PATIENT IS ALERT AND ORIENTED BUT FORGETFUL AND ABLE TO CALL APPROPRIATELY FOR NEEDS AND PARTICIPATE IN CARE. VITAL SIGNS STABLE WITH PATIENT ON OXYGEN TO GOOD EFFECT. NURSE TO COMPLETE ADMISSION AND INITIATE PLAN OF CARE.
[2020-08-07 04:16] VITALS: BP 96/49
[2020-08-07 04:32] LABS: CHOLESTEROL 108 mg/dL (<200); HDL CHOLESTEROL 34 mg/dL (>40); LDL CHOLESTEROL 55 mg/dL (<100); TC:HDL 3.2 Ratio (Not establshd); TRIGLYCERIDE 95 mg/dL (<150); TROPONIN-I <0.06 ng/mL (<0.06); VLDL 19 mg/dL (<40)
[2020-08-07 04:33] LABS: SERUM ASSESSMENT Clear
[2020-08-07 08:26] LABS: BE(vivo) 3.9 mmol/L (-2 to +3); HCO3 35.9 mmol/L (22.0-26.0); PO2 77.9 mmHg (80.0-100.0); sO2 91.8 % (92.0-98.0)
[2020-08-07 08:27] LABS: PCO2 93.5 mmHg (35.0-45.0); pH 7.202 (7.360-7.450)
[2020-08-07 08:46] LABS: FOLIC ACID 16.3 ng/mL (8.6-58.9)
[2020-08-07 10:07] VITALS: BP 142/80
[2020-08-07 12:29] VITALS: BP 125/77
--- NOTE | 2020-08-07 14:52 | NUR ---
ASSUMED CARE SHIFT CHANGE. VSS. UPON ASSESSMENT PT UNAROUSABLE, BUT BREATHING WITH O2. PULM NOTIFIED. ABG'S ORDERED. REFER TO RESULTS. PT PLACED ON BIPAP WITH PT WAKING UP SHORTLY AFTER. SPOUSE ARRIVED, EDUCATED ON BIPAP AND THE NEED FOR THE PT TO WEAR IT. SHORTLY AFTER, SPOUSE REMOVED MASK TO GIVE PT FOOD AND WATER. PT AND SPOUSE EDUCATED ON THE NEED FOR BIPAP AT THIS TIME AND THE IMPORTANCE OF CO2 AND O2 LEVELS BEING WNL. PT BECAME ANGRY WITH BIPAP ON AND STATED TO THIS RN "GET OUT OF MY FACE UNLESS YOU ARE A DOCTOR." THIS RN STEPPED AWAY, NOTIFIED PHYSICIAN. DR PUENTE REQUESTED TO SPEAK TO PT AND FAMILY VIA TELEPHONE. SPOUSE AND DR PUENTE HAD EXTENSIVE CONVERSATION REGARDING GOALS OF CARE FOR PT PT IS NOT COMPLIANT WITH CPAP/BIPAP. PT UNABLE TO PARTICIPATE PT COULD NOT REMAIN AWAKE DURING CONVERSATION. SPOUSE SEEMED TO HAVE BETTER UNDERSTANDING BY END OF CONVERSATION ON WHY BIPAP/CPAP IS NECESSARY. WILL MOVE PT CLOSER TO RN STATION FOR SAFETY. CONT TO FOLLOW POC.
[2020-08-07 16:19] LABS: BE(vivo) 5.8 mmol/L (-2 to +3); HCO3 38.2 mmol/L (22.0-26.0); PCO2 97.6 mmHg (35.0-45.0); PO2 77.6 mmHg (80.0-100.0); sO2 91.7 % (92.0-98.0)
[2020-08-07 16:46] VITALS: BP 131/68
--- NOTE | 2020-08-07 17:00 | NUR ---
PT CONTINUES TO BE ON BIPAP, ABG LAB REVEAL CO2 WORSENED. DR PUENTE NOTIFIED, ORDERS FOR RT TO ADJUST BIPAP SETTINGS. PT REMAINS ON BIPAP TOLERATING FAIR. SPOUSE AT BEDSIDE UPDATED ON POC. CONT POC WILL PASS ON REPORT TO NITHIN POOLE.
[2020-08-07 17:55] LABS: BE(vivo) 3.3 mmol/L (-2 to +3); HCO3 35.4 mmol/L (22.0-26.0); PO2 90.6 mmHg (80.0-100.0); sO2 94.4 % (92.0-98.0)
[2020-08-07 17:56] LABS: PCO2 93.4 mmHg (35.0-45.0); pH 7.196 (7.360-7.450)
[2020-08-07 19:14] VITALS: BP 123/74
[2020-08-07 21:21] LABS: BE(vivo) 2.9 mmol/L (-2 to +3); HCO3 35.9 mmol/L (22.0-26.0); PO2 86.4 mmHg (80.0-100.0); sO2 93.1 % (92.0-98.0)
[2020-08-07 21:23] LABS: PCO2 101.9 mmHg (35.0-45.0); pH 7.165 (7.360-7.450)
--- NOTE | 2020-08-07 23:52 | NUR ---
UPON INITIAL ASSESSMENT PATIENT LETHARGIC AND HARD TO ROUSE. BIPAP IN PLACE WITH PROBLEMS MAINTAINING SEAL DUE TO PATIENTS SIZE AND INEFFECTIVE MASKS. PATIENT HAVING PERIODS OF APNEA WITH SATURATIONS DROPPING INTO 70'S PERIODICALLY. NURSE SPOKE TO PULMONOLOGY WITH PLAN SET UP TO MAKE FURTHER DECISIONS AFTER NEXT BLOOD GAS. ABG REVELED CRITICAL PH AND CO2 RESULTS PROMPTING ORDERS FOR PATIENT TO BE TRANSFERRED TO ICU AND INTUBATED AND PLACED ON VENTILATOR. PATIENTS GIRLFRIEND CALLED AND NOTIFIED OF PATIENTS CONDITION WITH QUESTIONS ANSWERED.
[2020-08-08] VITALS (21 sets, daily range): BP systolic 82–124; BP diastolic 34–73
[2020-08-08 00:28] LABS: BE(vivo) 4.7 mmol/L (-2 to +3); HCO3 31.1 mmol/L (22.0-26.0); PCO2 52.2 mmHg (35.0-45.0); PO2 53.2 mmHg (80.0-100.0); pH 7.393 (7.360-7.450); sO2 86.9 % (92.0-98.0)
[2020-08-08 02:05] LABS: GLYCOHEMOGLOBIN (HGB A1C) 6.5 % (4.8-5.6)
[2020-08-08 04:23] LABS: ABSOLUTE NEUTROPHILS 11.3 thou/uL (1.4-8.2); HEMATOCRIT 46.3 % (42.0-52.0); HEMOGLOBIN 15.1 gm/dL (14.0-18.0); MCHC 32.6 g/dL (28.0-37.0); MCV 101.1 fL (80.0-100.0); MONOCYTES 3.8 % (1.0-8.0); PLATELET COUNT 189 thou/uL (150-400); POLYS 83.2 % (36.0-66.0); RBC 4.58 mil/uL (4.50-6.00); RDW 14.4 % (10.5-14.5); WBC 13.5 thou/uL (4.0-11.0)
[2020-08-08 04:49] LABS: ANION GAP 6 mmol/L (7-16); BUN 34 mg/dL (7-18); CALCIUM 9.1 mg/dL (8.5-10.1); CHLORIDE 101 mmol/L (98-107); CO2 33 mmol/L (21-32); GLUCOSE 166 mg/dL (74-106); MAGNESIUM 1.9 mg/dL (1.8-2.4); PHOSPHORUS 1.5 mg/dL (2.6-4.7); POTASSIUM 5.7 mmol/L (3.5-5.1); SODIUM 140 mmol/L (136-145); TROPONIN-I <0.06 ng/mL (<0.06)
--- NOTE | 2020-08-08 07:12 | EKG ---
[address] [place] [address] ELECTROCARDIOGRAM REPORT Name: MARYAMGURWINDER Hernandez Room #: 243- ADM IN .R.#: [id number] Admission: 08/06/20 Attend Phys: Ping Rothman Discharge: Date of : 62 Report #: [id number] [facility] ED Test Date: 2020-08-06 Test Time: 21:22:22 Pat Name: GURWINDER FRANCISCO Department: Room: [facility] Gender: M Stacker Operator: carlos : 1960 Requested By: Bi Milian Order Number: [id number] MD: Kale Centeno Measurements Intervals [place] Rate: 84 P: 73 ID: [id number] QRS: 54 QRSD: 95 T: 61 QT: 367 QTc: 434 Interpretive Statements Sinus rhythm Atrial premature complexes in couplets Compared to ECG 03/26/2020 18:07:54 Atrial premature complex(es) now present Electronically Signed On 08-08-2020 7:12:20 CDT by Kale Centeno [email or web address] <ELECTRONICALLY SIGNED> By: Kale Centeno MD, [facility] 08/08/20711 21 21 Kale Centeno MD, FACC /EPI
--- NOTE | 2020-08-08 10:38 | 2DMMODE ---
[address] [address] 2 D/M-MODE ECHOCARDIOGRAM Name: GURWINDER FRANCISCO David Room #: 243-P ADM IN M.R.#: [id number] Admission: 08/06/20 Attend Phys: Ping Rothman Discharge: Date of : 62 Report #: [id number] THIS REPORT FOR: cc: [facility] - Clinic physician unknown [facility] - Clinic physician unknown Kale Centeno MD [facility] ~ ADDENDUM APPROVED REPORT Study performed: 08/08/2020 09:26:45 EXAM: Comprehensive 2D, Doppler, and color-flow Echocardiogram Patient Location: ICU Room #: [facility] Status: routine BSA: 2.60 HR: 81 bpm BP: 92/49 mmHg Other Information Study Quality: Technically Difficult Technically limited study due to body habitus, patient on ventilator. Indications COPD Pulmonary Hypertension Atrial Fibrillation Hypertension/HDD Echo Enhancing Agent Indication: Endocardial border delineation Agent(s) / Amount(s) Used: Optison 4 cc 2D Dimensions IVC: 27.00 mm Aortic Valve AoV Peak Cosme.: 1.43 m/s AO Peak Gr.: 10.08 mmHg Tricuspid Valve TR Peak Cosme.: 2.91 m/s TR Peak Gr.: 33.94 mmHg PA Pressure: 44.[address] [address] 2 D/M-MODE ECHOCARDIOGRAM Name: GURWINDER FRANCISCO Room #: [facility] ADM IN M.R.#: [id number] Admission: 08/06/20 Attend Phys: Ping Ghosh Discharge: Date of : 62 Report #: [id number] Left Ventricle The left ventricle is normal size. Mild concentric left ventricular hypertrophy. The left ventricular systolic function is normal. The left ventricular ejection fraction is within the normal range. LVEF is 60-65%. This study is not technically sufficient to allow evaluation of the LV diastolic function. Right Ventricle Right ventricle is not well visualized. Atria Left atrium is not well visualized. Right atrium is not well visualized. Aortic Valve The aortic valve is not well visualized. No aortic regurgitation is present. There is no aortic valvular stenosis. Mitral Valve Mitral valve is not well visualized. There is no mitral valve regurgitation noted. No evidence of mitral valve stenosis. Tricuspid Valve Tricuspid valve is not well visualized. There is trace to mild tricuspid regurgitation. Estimated PAP 44 mmHg. There is moderate pulmonary hypertension. Pulmonic Valve Pulmonic valve is not well visualized. Great Vessels Aortic root is not well visualized. IVC is dilated and collapses <50% with inspiration. Pericardium There is no pericardial effusion. <Conclusion> Technically very difficult study Normal left ventricular size with mild concentric hypertrophy Ejection fraction 60-65% The right ventricle appears to be normal in size Difficult to visualize the atrium Color-flow Doppler study was performed of the [facility] [place] [address] [place] [address] 2 D/M-MODE ECHOCARDIOGRAM Name: GURWINDER FRANCISCO Room #: 243-P [facility] IN M.R.#: [id number] Admission: 08/06/20 Attend Phys: Ping Ghosh Discharge: Date of : 62 Report #: [id number] aortic/mitral/tricuspid/pulmonary valve Both aortic and mitral valve not well seen but no obvious of valvular dysfunction detected Trace tricuspid valve insufficiency Pulmonary systolic pressure estimated at 44 mmHg No pericardial effusion Aortic root not well visualized. Optison used for better endocardial visualization <ELECTRONICALLY SIGNED> By: Kale Centeno MD, FACC 08/08/20 1037 1037 1037 Kale Centeno MD, FACC /INF
[2020-08-08 10:54] LABS: BE(vivo) 8.2 mmol/L (-2 to +3); HCO3 35.5 mmol/L (22.0-26.0); PCO2 59.1 mmHg (35.0-45.0); pH 7.397 (7.360-7.450); sO2 83.6 % (92.0-98.0)
[2020-08-08 12:30] LABS: BE(vivo) 4.1 mmol/L (-2 to +3); HCO3 32.2 mmol/L (22.0-26.0); PCO2 62.7 mmHg (35.0-45.0); PO2 85.1 mmHg (80.0-100.0); sO2 95.5 % (92.0-98.0)
[2020-08-08 12:31] LABS: pH 7.329 (7.360-7.450)
[2020-08-08 13:37] LABS: CALCIUM 9.3 mg/dL (8.5-10.1); POTASSIUM 5.3 mmol/L (3.5-5.1)
--- NOTE | 2020-08-08 15:27 | NUR ---
Chart review. Discussed during am rounds. Required intubation last night, sever sleep apnea per MD. He does follow commands. Will cont following as needed for dc needs.
--- NOTE | 2020-08-08 18:02 | NUR ---
ON THE VENT, LIGHTLY SEDATED-AWAKENS EASILY, FOLLOWS COMMANDS AND NODS TO Y/N QNS AND ATTEMPTS TO MOUTH WORDS. VITALS STABLE. ASSESSMENT COMPLETED. SIGNIFICANT OTHER AT THE BEDSIDE MOST OF THE DAY AND UPDATED. WILL CONTINUE WITH POC.
[2020-08-09] VITALS (25 sets, daily range): BP systolic 86–118; BP diastolic 40–62
[2020-08-09 04:31] LABS: HEMATOCRIT 44.3 % (42.0-52.0); HEMOGLOBIN 14.6 gm/dL (14.0-18.0); MCH 33.3 pg (26.0-34.0); MCHC 32.9 g/dL (28.0-37.0); MCV 101.3 fL (80.0-100.0); RBC 4.38 mil/uL (4.50-6.00); RDW 14.6 % (10.5-14.5); WBC 13.2 thou/uL (4.0-11.0)
[2020-08-09 04:40] LABS: ALBUMIN 3.4 g/dL (3.4-5.0); CALCIUM 9.1 mg/dL (8.5-10.1); CREATININE 1.7 mg/dL (0.7-1.3); POTASSIUM 5.1 mmol/L (3.5-5.1); TOTAL BILIRUBIN 0.2 mg/dL (0.2-1.0); TOTAL PROTEIN 7.1 g/dL (6.4-8.2)
--- NOTE | 2020-08-09 10:00 | NUR ---
If physician approves initiating tube feeds, start vital HP at 30ml/hr with goal of 60ml/hr
--- NOTE | 2020-08-09 14:47 | NUR ---
VITAL HP TUBE FEEDING STARTED AT 30CC/HR PER ORDER. TEACHING DONE W/ PT'S SIGNIFICANT OTHER WHO IS AT BEDSIDE. WILL CONTINUE TO MONITOR.
--- NOTE | 2020-08-09 17:45 | NUR ---
PT LIGHTLY SEDATED, AWAKENS AND FOLLOWS COMMANDS APPROPRIATELY. SIGNIFICANT OTHER AT BEDSIDE WHO PT ACTIVELY INTERACTS WITH. TUBE FEEDINGS STARTED AND PT TOLERATING WELL SO FAR. VENT SETTINGS TITRATED TOLERATED. PT IN GUARDED CONDITION BUT SLOWLY PROGRESSING TOWARD GOALS.
[2020-08-10] VITALS (24 sets, daily range): BP systolic 97–160; BP diastolic 49–89
[2020-08-10 03:02] LABS: HEMATOCRIT 41.8 % (42.0-52.0); HEMOGLOBIN 13.6 gm/dL (14.0-18.0); MCH 32.9 pg (26.0-34.0); MCHC 32.6 g/dL (28.0-37.0); MCV 100.9 fL (80.0-100.0); RBC 4.14 mil/uL (4.50-6.00); RDW 14.5 % (10.5-14.5); WBC 12.7 thou/uL (4.0-11.0)
[2020-08-10 05:45] LABS: CALCIUM 8.6 mg/dL (8.5-10.1); CREATININE 1.9 mg/dL (0.7-1.3)
--- NOTE | 2020-08-10 09:02 | NUR ---
Pt mg shows red tinged urine with clots and sediment - mg flushed with immediate urine response of 500cc. Will continue to flush regularly.
--- NOTE | 2020-08-10 09:53 | NUR ---
All sedation off, CPAP trial in progress. Pt eyes open, nodding yes and no to questions/commands.
[2020-08-10 11:16] LABS: BE(vivo) 6.5 mmol/L (-2 to +3); HCO3 35.7 mmol/L (22.0-26.0); PCO2 70.9 mmHg (35.0-45.0); PO2 60.5 mmHg (80.0-100.0); sO2 88.3 % (92.0-98.0)
--- NOTE | 2020-08-10 11:21 | NUR ---
Pt with copious oral and nasal secretions, HR in 150's, mouthing around ETT that he cannot breathe. Placed back on vent, ABG pending. SO now at bedside talking to pt.
[2020-08-10 11:39] LABS: URINE BILIRUBIN NEGATIVE (Negative); URINE BLOOD 3+ (Negative); URINE CLARITY CLOUDY; URINE GLUCOSE-RANDOM* NEGATIVE (Negative); URINE KETONES NEGATIVE (Negative); URINE LEUKOCYTES-REFLEX TRACE (Negative); URINE NITRITE-REFLEX NEGATIVE (Negative); URINE PROTEIN (DIPSTICK) TRACE (Negative); URINE SPECIFIC GRAVITY 1.015 (1.005-1.035); URINE UROBILINOGEN 0.2 E.U./dl (0.2-1.0)
[2020-08-10 11:40] LABS: URINE COLOR AMBER
[2020-08-10 12:34] LABS: CASTS None Seen /LPF (None Seen); SQUAMOUS 0-3 Few /LPF (0-3); URIC ACID CRYSTALS >10 Many /LPF (None Seen)
[2020-08-10 12:35] LABS: BACTERIA-REFLEX None Seen /HPF (None Seen); URINE RBC >20 Many /HPF (NONE SEEN); URINE WBC-REFLEX 0-5 Rare /HPF (0-5)
[2020-08-11] VITALS (24 sets, daily range): BP systolic 99–145; BP diastolic 52–81
[2020-08-11 06:51] LABS: HEMATOCRIT 43.3 % (42.0-52.0); HEMOGLOBIN 14.1 gm/dL (14.0-18.0); MCH 33.1 pg (26.0-34.0); MCHC 32.6 g/dL (28.0-37.0); MCV 101.5 fL (80.0-100.0); RBC 4.27 mil/uL (4.50-6.00); RDW 14.1 % (10.5-14.5); WBC 10.5 thou/uL (4.0-11.0)
[2020-08-11 06:59] LABS: CALCIUM 8.5 mg/dL (8.5-10.1); CREATININE 1.5 mg/dL (0.7-1.3); POTASSIUM 5.2 mmol/L (3.5-5.1)
[2020-08-11 13:32] LABS: BE(vivo) 4.2 mmol/L (-2 to +3); HCO3 31.2 mmol/L (22.0-26.0); PCO2 55.8 mmHg (35.0-45.0); PO2 68.6 mmHg (80.0-100.0); pH 7.366 (7.360-7.450); sO2 92.9 % (92.0-98.0)
--- NOTE | 2020-08-11 17:22 | NUR ---
PATIENT PROGRESSING TOWARDS THE PLAN OF CARE EVIDENCED BY DECREASED OXYGEN DEMANDS. EXTUBATED AT 1450.
[2020-08-12] VITALS (20 sets, daily range): BP systolic 122–155; BP diastolic 61–87
--- NOTE | 2020-08-12 01:21 | NUR ---
ASSESSMENT: RIGHT AFTER CHANGE OF SHIFT PT WAS VERY ADAMANT ABOUT WANTING TO EAT. IT WAS EXPLAINED BY THIS RN, THE SLATE HANDLER AND THE ABSTRACTOR THAT HE WOULD NOT BE ALLOWED TO EAT POST EXTUBATION (EXTUBATED 08/11 AT 1450) UNTIL SWALLOW EVAL WAS DONE BY ST. PT SEEMED TO UNDERSTAND INITIALLY. PT CALLED HIS AND COMPLAINED TO HER THAT HE WAS HUNGRY, WANTED SOMETHING TO EAT AND THAT HE WAS NOT GOING ON THE BIPAP UNTIL HE RECEIVED SOMETHING TO EAT. RT CAME TO PLACE THE PT ON THE BIPAP AND HE LITERALLY CURSED AT HER AND MADE RUDE STATEMENTS TOWARDS HER YELLING THAT HE WAS NOT READY TO GO ON THE BIPAP AND SHE DIDN'T TELL HIM WHEN IT WAS TIME TO GO ON BIPAP. HE THEN REQUESTED TO SPEAK TO THE SLATE HANDLER. EMMY (CHARGE) SPOKE TO THE PT AND SEEMED TO HAVE CALMED HIM DOWN FOR A SHORT PERIOD OF TIME. SOON AFTERWARDS PT CONTINUOUSLY STARTED TAKING OFF HIS FACE SHIELD, ONCE AGAIN AND DEMANDED TO SPEAK TO THE NURSE PRACTIONER. PT CALLED FOR THIS RN. UPON ENTERING THE PT STATE THAT HE WISHED TO APOLOGIZE TO THIS RN FOR BEING MEAN AND THAT HE HOPE THAT I'D ACCEPT HIS APOLOGIES. PT HAD INITIALLY TOLD THIS RN THAT IF HE DIDN'T GET ANYTHING TO EAT THAT HE WAS GOING TO "RING OUT ALL NIGHT". HE ALSO SAID, "I DON'T WANT TO GET YOU INTO ANY TROUBLE BUT CAN I HAVE A ICECREAM". PT REFUSED MOUTH MOISTERIZER AND MOUTH SWABS. ABSTRACTOR Jason RODGERS RETURNED THIS RN'S CALL AND REINTERATED THAT PT WAS NOT ALLOWED TO EAT AFTER BEING EXTUBATED/ON BIPAP. PT DID RECEIVE PRN ATIVAN EARLIER, BUT THEN DECIDED THAT HE WAS NOT "READY" TO GO ON THE BIPAP. PT WAS PLACED ON THE BIPAP AT 2320 AND WAS A LITTLE MORE COMPLIANT. PT IS ALERT AND ORIENT TIMES FOUR. MADSEN. DENIES PAIN, SOB AND N/V. INITALLY WAS ON FACE SHIELD AT 50% SATS 90-95%. DESATS MID 88'S WHEN SHIELD IS REMOVED. SLOW PROGRESS TOWARDS DC GOALS. WILL CONTINUE TO MONITOR.
[2020-08-12 03:00] LABS: HEMOGLOBIN 15.4 gm/dL (14.0-18.0); MCH 33.1 pg (26.0-34.0); MCHC 32.8 g/dL (28.0-37.0); RBC 4.66 mil/uL (4.50-6.00); WBC 12.9 thou/uL (4.0-11.0)
[2020-08-12 03:09] LABS: CREATININE 1.6 mg/dL (0.7-1.3); POTASSIUM 5.5 mmol/L (3.5-5.1)
--- NOTE | 2020-08-12 03:24 | NUR ---
PT ON 4 L PER NC AT 0224, TOLERATING WELL.
--- NOTE | 2020-08-12 05:36 | NUR ---
PT'S URINE IS GETTING CLEARER, NOT BLOOD TINGED BEFORE.
[2020-08-12 07:22] LABS: CALCIUM 8.8 mg/dL (8.5-10.1); CREATININE 1.4 mg/dL (0.7-1.3); POTASSIUM 5.6 mmol/L (3.5-5.1)
[2020-08-12 08:00] LABS: BE(vivo) 6.1 mmol/L (-2 to +3); HCO3 31.8 mmol/L (22.0-26.0); PCO2 48.8 mmHg (35.0-45.0); PO2 59.7 mmHg (80.0-100.0); pH 7.432 (7.360-7.450); sO2 91.3 % (92.0-98.0)
--- NOTE | 2020-08-12 09:00 | NUR ---
Chart review. Discussed during am rounds. Possible need trilogy at home. Visited with patient at bedside. Intro to cm and dcp. Education on HH and rehab. He reported has home oxygen. In process of getting sleep study here at [facility]. PCP Dr Estiven Carmen at [facility] off [address] [place]. He was independent, stairs to basement doesnt have to go to basement. Manage own medication. Drives vehicle. Retired. Will cont following as needed for dc needs. Speech eval for diet.
--- NOTE | 2020-08-12 15:59 | NUR ---
FAXED REFERRAL TO [facility] AND [facility] WITH NEGATIVE COVID RESULT (08/06/20). NOTED POSSIBLE DISCHARGE THIS WEEKEND. WILL CONFIRM THEY RECEIVED AND IF AVAILABLE TO PROVIDE SERVICES. [facility] P [phone]; FAX [facility] P [phone]; FAX [phone]
--- NOTE | 2020-08-12 17:21 | NUR ---
PATIENT PROGRESSING TOWARDS THE PLAN OF CARE. CC TELE TRANSFER ORDERS IN PLACE. SEEN BY PT/OT/ST TODAY.
--- NOTE | 2020-08-12 22:18 | NUR ---
This RN gave report to 3W RNMarii at 2220. Will transfer patient with all belongings.
[2020-08-13 04:32] VITALS: BP 129/91
[2020-08-13 07:23] LABS: HEMATOCRIT 51.4 % (42.0-52.0); HEMOGLOBIN 16.8 gm/dL (14.0-18.0); MCH 32.9 pg (26.0-34.0); MCHC 32.7 g/dL (28.0-37.0); MCV 100.7 fL (80.0-100.0); RBC 5.1 mil/uL (4.50-6.00); RDW 14.3 % (10.5-14.5); WBC 14.3 thou/uL (4.0-11.0)
[2020-08-13 07:34] LABS: CREATININE 1.4 mg/dL (0.7-1.3); POTASSIUM 5.1 mmol/L (3.5-5.1)
[2020-08-13 08:00] VITALS: BP 156/98
--- NOTE | 2020-08-13 08:16 | NUR ---
Pt. transferred from ICU around 2244 on 4L/NC. RT placed him on BIPAP after MN then pt. requested to be off BIPAP this am. No respiratory distress. Voided per urinal then INTER COM INSTALLER reported he voided on the floor x1 and also reported being rude to her.
[2020-08-13 11:47] VITALS: BP 158/87
[2020-08-13 13:48] LABS: BE(vivo) 4.3 mmol/L (-2 to +3); HCO3 30.8 mmol/L (22.0-26.0); PCO2 51.5 mmHg (35.0-45.0); PO2 61.1 mmHg (80.0-100.0); pH 7.394 (7.360-7.450)
[2020-08-13 15:32] VITALS: BP 145/87
[2020-08-13 20:21] VITALS: BP 136/81
[2020-08-14 04:59] VITALS: BP 137/82
--- NOTE | 2020-08-14 06:32 | NUR ---
PT FINALLY WENT ON BIPAP AFTER NUMEROUS ATTEMPTS. EXTERNAL CATH OFF AND PT USING URINAL. FOLLOWING POC WITH IVPB AND 02 SATURATION. HOURLY ROUNDING.
[2020-08-14 07:35] VITALS: BP 136/91
--- NOTE | 2020-08-14 08:14 | EKG ---
[address] [address] ELECTROCARDIOGRAM REPORT Name: GURWINDER FRANCISCO Room #: 363-[facility] IN .R.#: [id number] Admission: 08/06/20 Attend Phys: Ping Rothman Discharge: Date of : 62 Report #: [id number] [facility] Test Date: 2020-08-14 Test Time: 07:40:37 Pat Name: GURWINDER FRANCISCO Department: Room: 363 P Gender: M Quality Assurance Supervisor Body: FSCHWALJAYCEE : 1960 Requested By: Black Gonzalez Order Number: [id number] MD: Kale Centeno Measurements Intervals [place] Rate: 76 P: 66 GA: 142 QRS: 39 QRSD: 96 T: 47 QT: 381 QTc: 429 Interpretive Statements Sinus rhythm Left atrial enlargement Baseline wander in lead(s) V1,V4 Compared to ECG 08/06/2020 21:22:22 Atrial abnormality now present Atrial premature complex(es) no longer present Electronically Signed On 08-14-2020 8:14:18 CDT by Kale Centeno [email or web address] <ELECTRONICALLY SIGNED> By: Kale Centeno MD, [facility] 08/14/2014 9 9 Kale Centeno MD, [facility] /EPI
[2020-08-14 11:35] VITALS: BP 130/74
[2020-08-14 15:49] VITALS: BP 128/74
[2020-08-14 20:42] VITALS: BP 138/78
[2020-08-15 05:08] VITALS: BP 122/78
[2020-08-15 05:48] LABS: HEMATOCRIT 49.1 % (42.0-52.0); HEMOGLOBIN 15.9 gm/dL (14.0-18.0); MCH 32.4 pg (26.0-34.0); MCHC 32.5 g/dL (28.0-37.0); MCV 99.9 fL (80.0-100.0); RBC 4.92 mil/uL (4.50-6.00); RDW 14.1 % (10.5-14.5); WBC 17.2 thou/uL (4.0-11.0)
[2020-08-15 05:55] LABS: CALCIUM 8.3 mg/dL (8.5-10.1); CREATININE 1.3 mg/dL (0.7-1.3); POTASSIUM 4.7 mmol/L (3.5-5.1)
--- NOTE | 2020-08-15 06:35 | NUR ---
PT ON BIPAP FOR ABOUT 3 HOURS OVERNIGHT WHILE ON 3L. TELE SHOWS SR. BLOOD SUGAR AT 2100 WAS 263 WITH 6 UNITS GIVEN. PT IS GRUMPY WITH SOME STAFF. HOURLY ROUNDING.
[2020-08-15 07:51] VITALS: BP 112/66
--- NOTE | 2020-08-15 09:10 | NUR ---
PATIENT IS HOPING TO GO DIRECTLY HOME. IF PATIENT DOES NOT GO HOME, HAS THERAPY NEEDS AND WISHES TO STAY AT [facility] FOR ACUTE REHAB, AUHTORIZATION WILL NEED TO BE OBTAINED. INSURANCE NOT OPEN TODAY DUE TO HOLIDAY. WILL FOLLOW 08/16/20 AND SUBMIT FOR AUTHORIZATION IF APPROPRIATE.
[2020-08-15] MEDS ORDERED: CARVEDILOL12.5 MG PO (12:21)
[2020-08-15] MEDS ORDERED: PREDNISONE 10 M10 M1 PO (12:22)
[2020-08-15 15:00] VITALS: BP 138/75
== END 2020-08-15 16:36 | disposition home or self-care (01) | DRG 291 ==
LOC: ER 21:13 → ICU 23:43 → EROBS 23:43 → 2N 08-07 00:58 → ICU 08-07 22:04 → 3W 08-12 22:50
PROVIDERS: Emergency Medicine; Hospitalist; Internal Medicine; Nurse Practitioner; Nurse Practitioner Adult Health; Nurse Practitioner Family; Pediatrics; ADMIT Hospitalist; ATTEND Hospitalist
DX: I13.0 Hypertensive heart and chronic kidney disease with heart failure and stage 1 through stage 4 chronic kidney disease, or unspecified chronic kidney disease (principal); E43 Unspecified severe protein-calorie malnutrition; J18.9 Pneumonia, unspecified organism; I50.33 Acute on chronic diastolic (congestive) heart failure; J96.21 Acute and chronic respiratory failure with hypoxia; J96.22 Acute and chronic respiratory failure with hypercapnia; Z68.43 Body mass index [BMI] 50.0-59.9, adult; E87.2 Acidosis; E66.2 Morbid (severe) obesity with alveolar hypoventilation; E78.5 Hyperlipidemia, unspecified; J44.9 Chronic obstructive pulmonary disease, unspecified; F17.210 Nicotine dependence, cigarettes, uncomplicated; I48.0 Paroxysmal atrial fibrillation; E87.5 Hyperkalemia; E78.00 Pure hypercholesterolemia, unspecified; E11.22 Type 2 diabetes mellitus with diabetic chronic kidney disease; R31.9 Hematuria, unspecified; N18.30 Chronic kidney disease, stage 3 unspecified; I27.20 Pulmonary hypertension, unspecified; Z20.822 Contact with and (suspected) exposure to COVID-19; Z79.01 Long term (current) use of anticoagulants; Z79.82 Long term (current) use of aspirin; Z86.73 Personal history of transient ischemic attack (TIA), and cerebral infarction without residual deficits; Z79.899 Other long term (current) drug therapy; Z91.09 Other allergy status, other than to drugs and biological substances; Z72.89 Other problems related to lifestyle; Z91.14 Patient's other noncompliance with medication regimen
CPT/HCPCS: 10078; 10879; 50455

== ENCOUNTER → 2020-10-01 | Outpatient (CLI) | payer OTHER ==
[~2020-10-01] MED LIST changes: +CARVEDILOL12.5 MG PO; +HYTRIN 1 MG CAP1 MG PO; +LASIX 40 MG TAB40 MG PO; +MAG OX PO; +MULTIVITAMIN GUMMY PO; +PREDNISONE 10 M10 M1 PO; +SPIRONOLACTONE25 MG PO; +TORSEMIDE5 MG PO
--- NOTE | 2020-10-04 22:53 | SLE ---
[facility] [place] [address] POLYSOMNOGRAPHY STUDY Name: GURWINDER FRANCISCO [id number] Admission: 10/01/20 Attend Phys: Daniel Jung MD Discharge: Date of : 62 Report #: [id number] THIS REPORT FOR: cc: FAM - Family physician unknown FAM - Family physician unknown Daniel Jung MD ~ cc: Chau Pink MD DATE OF SERVICE: 10/01/2020 SLEEP STUDY DATE OF STUDY: 10/01/2020 ATTENDING PHYSICIAN: Dr. Chau Pink. The patient is 60 years old who weighs 331 pounds with a BMI of 48.9. The patient's Apache score was 24 suggesting severe subjective hypersomnia. The patient was referred to [facility] for sleep study. Diagnostic sleep study was performed. During the night study, the patient spent 402 minutes in bed and slept for 378 minutes with a sleep efficiency of 94%. Sleep latency was 9.5 minutes with a REM latency of 130 minutes. Sleep architecture showed normal stage I sleep, increased stage II sleep, absent slow wave and reduced REM sleep, which was 10% of total sleep time. During the night study, the patient had 58 hypopneas, 208 obstructive apneas, no mixed apneas and 3 central apneas. The patient's AHI was 42.7 per hour with a REM AHI of 33.6 per hour and a supine AHI of 6.7 per hour. EKG monitoring revealed an average heart rate of 73 beats per minute. No sustained arrhythmias observed. PLMs were seen at an index of 69 per hour and 7 per hour caused EEG arousals. Nocturnal oximetry study revealed an average oxygen saturation of 79% with a lowest of 33%. The patient was noted to have severe nocturnal hypoxia. 121 minutes were spent with oxygen saturation between 80% and 89%. 49 minutes with saturation between 70% and 79% and another 59 minutes with saturation between 60% and 69% and 34 minutes with saturation between 50% and 59%. Due to recall on Respironics CPAP, Sleep lab had no spare ResMed CPAP to initiate titration. IMPRESSION: [facility] [address] [place] [address] POLYSOMNOGRAPHY STUDY Name: GURWINDER FRANCISCO Room #: REG [facility]#: [id number] Admission: 10/01/20 Attend Phys: Daniel Jung MD Discharge: Date of : 62 Report #: [id number] 1. Severe sleep apnea-hypopnea syndrome at an apnea-hypopnea index of 42.7 per hour. 2. Severe nocturnal hypoxia secondary to obstructive sleep apnea. 3. Severe periodic limb movements. RECOMMENDATIONS: 1. The patient should return to the sleep lab for CPAP titration study with ResMed equipment. The patient has severe hypersomnia with an Apache score of 24. The patient even slept during the EEG hookup process. CPAP initiation should be performed as soon as possible. 2. Once the patient is optimally treated with CPAP, then follow up in 4-6 weeks to assess compliance and to document clinical improvement. 3. Weight loss is strongly advised. 4. Avoid GLASS CLEANER depressants. 5. Cautioned regarding driving until symptoms of sleep apnea resolve with the use of CPAP. The patient may need BiPAP. 6. The patient should also be further evaluated for symptoms of restless legs during the day if PLM index remains high after CPAP titration. <ELECTRONICALLY SIGNED> By: Daniel Jung MD 10/04/20 2253 1722 1855 Daniel Jung MD /nt
== END ==
LOC: SLEEPLAB 10:05
PROVIDERS: ATTEND Internal Medicine Critical Care Medicine
DX: Z01.812 Encounter for preprocedural laboratory examination (principal); Z20.822 Contact with and (suspected) exposure to COVID-19; G47.33 Obstructive sleep apnea (adult) (pediatric); R09.02 Hypoxemia

== ENCOUNTER → 2020-11-09 | Outpatient (CLI) | payer OTHER | LOC: SJCVCIMAG 14:56 | PROVIDERS: ATTEND Internal Medicine Cardiovascular Disease | DX: I07.1 Rheumatic tricuspid insufficiency (principal); I48.0 Paroxysmal atrial fibrillation; E78.00 Pure hypercholesterolemia, unspecified; I50.22 Chronic systolic (congestive) heart failure; J44.9 Chronic obstructive pulmonary disease, unspecified; E11.9 Type 2 diabetes mellitus without complications; I11.0 Hypertensive heart disease with heart failure; F17.200 Nicotine dependence, unspecified, uncomplicated; Z79.899 Other long term (current) drug therapy; Z79.82 Long term (current) use of aspirin ==